=== PATIENT | female | born 1970 | race Caucasian/White ===

== ENCOUNTER 2022-10-24 11:45 | Outpatient (OUT) | payer BC, SELFPAY ==
[2022-10-24 12:25] LABS: Basophils Absolute Auto 0.1 10^3/uL (0.0-0.1); Eosinophils Absolute Auto 0.2 10^3/uL (0.0-0.7); Eosinophils Percent Auto 2.4 % (0.9-7.0); Hematocrit 39.4 % (36.0-48.0); Hemoglobin 13.3 g/dL (12.0-16.0); Immature Granulocytes Abs Auto 0.01 10^3/uL (0.00-0.03); Immature Granulocytes Pct Auto 0.1 % (0.0-0.5); Lymphocytes Absolute Auto 2.3 10^3/uL (1.2-3.8); Lymphocytes Percent Auto 33.6 % (20.5-60.0); Mean Corpuscular HGB Conc 33.8 g/dL (29.9-35.2); Mean Corpuscular Hemoglobin 31.1 pg (26.7-34.0); Mean Corpuscular Volume 92.1 fL (81.0-99.0); Mean Platelet Volume 8.8 fL (9.5-13.5); Monocytes Absolute Auto 0.6 10^3/uL (0.3-0.8); Monocytes Percent Auto 8.8 % (1.7-12.0); Neutrophils Absolute Auto 3.6 10^3/uL (1.4-6.5); Neutrophils Percent Auto 54.1 % (43.0-75.0); Platelet Count 265 10^3/uL (150-450); Red Blood Count 4.28 10^6/uL (4.20-5.40); Red Cell Distribution Width 13.2 % (11.0-15.0); White Blood Count 6.7 10^3/uL (4.0-11.0)
[2022-10-24 13:43] LABS: Alanine Aminotransferase 31 U/L (14-59); Albumin Level 3.9 g/dL (3.4-5.0); Alkaline Phosphatase 64 U/L (46-116); Anion Gap 10.9; Aspartate Amino Transferase 25 U/L (15-37); BUN Creatinine Ratio 12.7; Bilirubin Total 1.1 mg/dL (0.2-1.0); Calcium 9.2 mg/dL (8.5-10.1); Carbon Dioxide 28.3 mmol/L (21.0-32.0); Chloride 104 mmol/L (98-107); Chol HDL Ratio 2.9; Cholesterol 167 mg/dL (<=200); Estimated GFR (African America >60 (>=60); Estimated GFR (Non-African Ame 52 (>=60); Free T3 1.97 pg/mL (2.18-3.98); Globulin 3.9 g/dL; Glucose 99 mg/dL (74-106); HDL Cholesterol 58 mg/dL (40-60); LDL Cholesterol Calculated 95.2 mg/dL; Potassium 4.2 mmol/L (3.5-5.1); Sodium 139 mmol/L (136-145); Thyroid Stimulating Hormone 1.195 uIU/mL (0.358-3.740); Total Protein 7.8 g/dL (6.4-8.2); Triglycerides 69 mg/dL (<=150); VLDL CHOLESTEROL 13.8 mg/dL
[2022-10-24 17:17] LABS: Estimated Average Glucose 111 mg/dL; Glycohemoglobin A1C 5.5 % (4.5-6.2)
== END 2022-10-24 11:46 | disposition home or self-care (01) ==
PROVIDERS: PCP Family Medicine; Visit Provider Family Medicine
DX: Z00.00 Encounter for general adult medical examination without abnormal findings (principal); E55.9 Vitamin D deficiency, unspecified
CPT/HCPCS: 36415; 80053; 80061; 82306; 83036; 83540; 84436; 84443; 84481; 85025

== ENCOUNTER 2024-06-06 15:00 | Outpatient (REF) | payer BC, SELFPAY ==
[2024-06-11 08:09] LABS: Age Gdln ACOG Testing Note (.); HPV Aptima Negative (Negative); IGP, Aptima HPV, rfx 16/18,45 Note (.)
== END 2024-06-06 15:01 | disposition home or self-care (01) ==
LOC: LAB 15:00
PROVIDERS: PCP Family Medicine; Visit Provider Physician Assistant
DX: Z01.419 Encounter for gynecological examination (general) (routine) without abnormal findings (principal)
CPT/HCPCS: 87624; 88175

== ENCOUNTER 2024-08-05 11:30 | Outpatient (OUT) | payer BC, SELFPAY ==
--- NOTE | 2024-08-05 11:35 | MM_ITS ---
Patient Name: MARA DHILLON MR#: [id number] : 1970 Exam Date: 08/05/2024 Ordering Doctor: FELICIA LR . RADIOLOGY REPORT PROCEDURE: MM TOMOSYNTHESIS SCREENING BI COMPARISON: None. INDICATIONS: Screening for malignant neoplasm Calculator Name NCI Breast Cancer Risk Assessment Tool 5 Year Breast Cancer Risk 1.30% Lifetime Breast Cancer Risk 9.30% Personal Breast Cancer No Personal Ovarian Cancer No Treatments None Family Cancers Father with esophageal cancer at age 78. LOCATION: [facility] BREAST COMPOSITION: There are scattered areas of fibroglandular density. FINDINGS: LEFT BREAST: No significant suspicious finding. Punctate benign-appearing calcifications are present. Benign-appearing lymph nodes are noted on chest wall appeared RIGHT BREAST: Focal asymmetry of the medial aspect of the right breast is noted measuring 8 millimeters in greatest dimension 5 cm from the nipple at approximately the 3 o'clock position . Punctate benign-appearing calcifications are present. Benign-appearing lymph nodes are noted along the chest wall. MM/MM tomosynthesis screening BI Impression: Focal asymmetry in the medial aspect of the right breast 5 cm from the nipple at the 3 o'clock position measuring 8 mm is in greatest dimension. Spot compressed views of the right breast with ultrasound is recommended. DIAGNOSTIC CATEGORY 0--INCOMPLETE: NEED ADDITIONAL IMAGING EVALUATION. RECOMMENDATIONS: SPOT COMPRESSED VIEWS OF THE RIGHT BREAST WELL ULTRASOUND IF CLINICALLY INDICATED: RIGHT BREAST --Please schedule a breast ultrasound if appropriate based on clinical data. PLEASE NOTE: A NORMAL MAMMOGRAM DOES NOT EXCLUDE THE POSSIBILITY OF BREAST CANCER. A CLINICALLY SUSPICIOUS PALPABLE LUMP SHOULD BE BIOPSIED. Dictated by: Malvin Bran MD on 08/23/2024 at 08:43 Approved by: Malvin Bran MD on 08/23/2024 at 08:50
== END 2024-08-05 11:31 | disposition home or self-care (01) ==
LOC: MAMMO 11:30
PROVIDERS: PCP Family Medicine; Visit Provider Physician Assistant
DX: Z12.31 Encounter for screening mammogram for malignant neoplasm of breast (principal); Z80.8 Family history of malignant neoplasm of other organs or systems; R92.8 Other abnormal and inconclusive findings on diagnostic imaging of breast
CPT/HCPCS: 77063; 77067

== ENCOUNTER 2024-09-30 08:13 | Outpatient (OUT) | payer BC, SELFPAY ==
--- OUTSIDE RECORDS SUMMARY | 2024-08-27 16:09 | XMS_ITS ---
Author Organization The [facility] in [place] Address [address] [place] [address] Care Team Providers Care Calender Machine Operator Name Role Phone Edu Ward Primary Care Provider REASON FOR VISIT DUPLICATE NOTE Encounters Encounter Location Date Provider Diagnosis [facility] [address] [place] [address] 08/27/2024 Edu Ward Plan Of Treatment No Information Progress Notes * Fany CH LDOB:[birth year] (54 yo F)Acc No.[id number]:08/27/2024 Patient: Zuri BEAULIEUFany :1970 A ge:54 Y S ex:Female Address:[address] [place] [id number] * true * Date: Generated for Kika chirinos/Logan/eTransmitting on: 0 09/30/2024 08:18 AM EDT
--- OUTSIDE RECORDS SUMMARY | 2024-09-03 05:42 | XMS_ITS ---
Author Organization The [facility] in [place] Address [address] [place] [address] Care Team Providers Care Scrum Project Manager Name Role Phone Edu Ward Primary Care Provider REASON FOR VISIT Mamm/ Refills Medications Medication SIG (Take, Route, Frequency, Duration) Notes Start Date End Date Status Omeprazole Magnesium 20 MG 1 tablet 30 m inutes before morning meal Orally Once a day- PRN for 30 days Active Encounters Encounter Location Date Provider Diagnosis [address] [address] 09/03/2024 Edu Ward Well adult Z00.0 0 Assessments Encounter Date Diagnosis (ICD Code) Assessment Notes Treatment Notes Treatment Clinical Notes Section Notes 09/03/2024 Well adult (ICD-10 - Z00.00) Plan Of Treatment Medication Medication Name Sig Start Date Stop Date Notes Omeprazole Magnesium 20 MG 1 tablet 30 m inutes before morning meal Orally Once a day- PRN for 30 days Progress Notes * Fany CH LDOB:[birth year] (54 yo F)Acc No.[id number]:09/03/2024 Patient: Deuce LIVINGSTONwm Pacheco :1970 A ge:54 Y S ex:Female Address:[address] [place] [phone] * Refills Refill Omeprazole Magnesium Tablet Delayed Release, 20 MG, Orally, 30, 1 tablet 30 minutes before morning meal, Once a day- PRN, 30 days, Refills=0 * true * Date: Generated for Kika chirinos/Logan/Ohitting on: 0 09/30/2024 08:19 AM EDT
--- OUTSIDE RECORDS SUMMARY | 2024-09-11 09:15 | XMS_ITS ---
Author Organization The [facility] in [place] Address [address] [place] [address] Care Team Providers Care Cement Production Plant Operator Name Role Phone Edu Ward Primary Care Provider [phone] Allergies No Known Allergies REASON FOR VISIT yearly- due for labs Medications Medication SIG (Take, Route, Frequency, Duration) Notes Start Date End Date Status hydrOXYzine HCl 25 MG 1 tablet as needed Orally qid for 10 days 09/11/2024 Active Omeprazole Magnesium 20 MG 1 tablet 30 m inutes before morning meal Orally Once a day- PRN for 30 days PRN Active Escitalopram Oxalate 10 MG 1 tablet Oral ly Once a day for 90 days Active valACYclovir HCl 1 GM 1 tablet Orally 2 tabs initially then 2 tabs in 12 hours PRN Active Semaglutide (2 MG/DOSE) 8 MG/3ML 1.8 mg Subcutaneous weekly 10/09/2023 A ctive Semaglutide 0.3 mg/0.25mL 0.3 mg/0.25 mL 0.25 mL Subcutaneous Once weekly for 30 day(s) 06/11/2024 Active Social History Tobacco Use: Social History Observation Description Date Details (start date - stop date) Never Smoker NA - NA Tobacco Control (Standard) Question Answer Notes Tobacco use: Nonsmoker AUDIT-C (Standard) Question Answer Notes Did you have a drink containing alcohol in the p ast year? No Points 0 Interpretation Negative Vital Signs Weight 163.0 lbs 09/11/2024 Height 67 in 09/11/2024 Blood pressure systolic 120 mm Hg 09/12/19 25 Blood pressure diastolic 72 mm Hg 025 BMI 25.53 kg/m2 09/11/2024 Encounters Encounter Location Date Provider Diagnosis [facility] [address] [facility] [place] [address] 09/11/2024 Edu Ward Well adult Z00.0 0 Assessments Encounter Date Diagnosis (ICD Code) Assessment Notes Treatment Notes Treatment Clinical Notes Section Notes 09/11/2024 Well adult (ICD-10 - Z00.00) Plan Of Treatment Medication Medication Name Sig Start Date Stop Date Notes hydrOXYzine HCl 25 MG 1 tablet as needed Orally qid for 10 days 09/11/2024 Pending Test Test Name Order Date HEMOGLOBIN A1C (GLYCO) 09/11/2024 IRON, TOTAL 09/11/2024 LIPID PANEL (CHOL/TRIG/HDL/LDL) 09/12/19 25 THYROID PANEL (T4/TSH/FREE T3) CMP (COMP MET KINGSLEY) w/eGFR CKD-EPI 2024 CBC WITH DIFF 09/11/2024 Progress Notes * DIMADeuce WHEELERee LDOB:[birth year] (54 yo F)Acc No.[id number]:09/11/2024 Progress Note Patient: Fany LIVINGSTON Provider: Yas Ward ([facility])MD :1970 A ge:54 Y S ex:Female Date:09/11/2024 Address:[address] [place], [place] [id number] Check In:01:13 PM ESTCheck O ut:01:55 PM EST Subjective: * Chief Complaints: * Y early- due for labs * HPI: G eneral: GERd Meds helping more anxiety - mom not best health discussed hydroxyzine cold somres - med intermittant diwell with semaglutide - lost 50 lb - gained some bck so went back on it. * ROS: E ENT: hearing changes d enies. v isual changes d enies.?non-healing mouth sores d enies. s wollen glands or neck lumps d enies. h oarseness d enies. s ore throat d enies. d ifficulty swallowing d enies. n ose bleeds d enies. n dayami congestion d enies. e ar ache d enies. e ar discharge?denies. r inging in ears d enies. l ight sensitivity d enies. e ye pain d enies. b lurring d enies. e ye irritation d enies. d ouble vision d enies.?vision loss d enies. G eneral/Constitutional: Sweats: D enies. F atigue d enies. S leep problems d enies. A norexia d enies. M alaise d enies. W eight loss d enies.?Fatigue or Weakness d enies. F ever or Chills d enies. C ardiovascular: Shortness of Breath w/lying flat d enies. L ightheadedness/dizziness d enies. C hest tightness/ heavy pressure d enies. S welling of legs, ankles, or feet d enies. W aking up with shortness of breath d enies. C hest pain denies. P alpitations d enies. W eight gain d enies. R espiratory: Chronic or frequent cough d enies. C oughing up blood?denies. D ifficulty breathing d enies. P roductive cough d enies. S noring?denies. S hortness of breath that awakens from sleep (PND) d enies. C hest pain d enies. S putum production d enies. W heezing d enies. M usculoskeletal: Joint pain d enies. J oint Fluid d enies. B ack pain d enies. K nee pain d enies. N melvin pain d enies. J oint Stiffness d enies. M uscle cramps d enies. W eakness of muscles d enies. A rthritis d enies. M uscle aches d enies. P ain in shoulder(s) d enies. S wollen joints d enies. 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 M other: alive. B rother(s): alive. S ister(s): alive. D renan(s): alive, anxiety. 1 brother(s) , 3 sister(s) - healthy. 2 daughter(s) - healthy. . * Social History: T obacco Use: T obacco Control (Standard) T obacco use: N onsmoker D rug/Alcohol: A PAULINA-C (Standard) D id you have a drink containing alcohol in the past year? N o P oints 0 I nterpretation N egative * Medications: T akingEscitalopram Oxalate 10 MG Tablet 1 tablet Orally Once a day Omeprazole Magnesium 20 MG Tablet Delayed Release 1 tablet 30 minutes before morning meal Orally Once a day- PRN , Notes to Pharmacist: PRNSemaglutide (2 MG/DOSE) 8 MG/3ML Solution Pen-injector 1.8 mg Subcutaneous weekly Semaglutide 0.3 mg/0.25mL 0.3 mg/0.25 mL Solution Auto-injector 0.25 mL Subcutaneous Once weekly valACYclovir HCl 1 GM Tablet 1 tablet Orally 2 tabs initially then 2 tabs in 12 hours , Notes to Pharmacist: PRNMedication List reviewed and reconciled with the patientTaking Escitalopram Oxalate 10 MG Tablet 1 tablet Orally Once a day Taking Omeprazole Magnesium 20 MG Tablet Delayed Release 1 tablet 30 minutes before morning meal Orally Once a day- PRN , Notes to Pharmacist: PRNTaking Semaglutide (2 MG/DOSE) 8 MG/3ML Solution Pen-injector 1.8 mg Subcutaneous weekly Taking Semaglutide 0.3 mg/0.25mL 0.3 mg/0.25 mL Solution Auto-injector 0.25 mL Subcutaneous Once weekly Taking valACYclovir HCl 1 GM Tablet 1 tablet Orally 2 tabs initially then 2 tabs in 12 hours , Notes to Pharmacist: PRNMedication List reviewed and reconciled with the patient * Allergies: N .K.D.A.no[Allergies Verified] Objective: * Vitals: W t:163.0lbs, Ht: 67 in, BP:120/72mm Hg, BMI:25.53Index, Wt-k.94 kg. * Examination: P hysical Exam: GENERAL: w ell developed, well nourished, in no acute distress. HEAD: n ormocephalic/atraumatic. EYES: p upils equal, round and reactive to light, conjunctivae and sclerae normal. EARS: n o deformity or lesion of external ear, canals and TM appear normal bilaterally, TM's intact, not inflamed with normal light reflex, hearing grossly normal to conversational speech. NOSE: n o deformity, discharge, inflammation, or lesions.? MOUTH: m ucous membranes moist, normal oropharynx and posterior pharynx without lesions or exudates, tongue normal, dentition normal. NECK: n melvin supple, no masses or palpable cervical nodes, trachea midline, thyroid without nodules, masses, tenderness, or enlargement. CHEST: n o chest wall deformity, no chest wall tenderness.? LUNGS: n ormal respiratory effort and clear to auscultation, no wheezes, rales, or rhonchi, good air exchange. CARDIO: r egular rate and rhythm, normal S1 and S2, nor murmur, rub, or gallop. PULSES: n ormal capillary refill. ABDOMEN: s oft, non-distended, non-tender, no masses. MUSCULOSKELETAL: n o deformity or scoliosis noted, normal range of motion, joints normal, no erythema, edema, effusion, or ecchymosis. EXTREMITY: n o clubbing, cyanosis, edema, or deformity with normal ROM in both upper and lower bilateral extremities. NEUROLOGIC: g rossly normal. SKIN: n o rashes, ulcerations, or suspicious lesions. LYMPH NODES: n o cervical adenopathy, nodes normal. MENTAL STATUS: a lert and oriented x3, normal mood and affect. Assessment: * Assessment: 1. W ell adult - Z00.00 (Primary) Plan: * Treatment: * Procedure Codes: * Preventive Medicine: Screenings/Counseling: B DE ACTION PLAN Above Normal BMI Follow-up D ietary management education, guidance, and counseling * * Sign off status: Completed Visit Status: C HK (Check Out) true * Provider: Yas Ward (TTC)MD Date: 0 09/11/2024 Generated for Printi ng/Faxing/eTransmitting on: 0 09/30/2024 08:19 AM EDT History and Physical Notes * HPI (History of Present Illness) Category Sub-Category Detail Notes Category Not es General GERd Meds helping more anxiety - mom not best health discussed hydroxyzine cold somres - med intermittant diwell with semaglutide - lost 50 lb - gained some bck so went back on it Examination Category Sub-Category Detail Notes Category Not es Physical Exam GENERAL: well developed, well nourished, in no acute distress HEAD: normocephalic/atraum atic EYES: pupils equal, round and reactive to light, conjunctivae and sclerae normal EARS: no deformity or lesi on of external ear, canals and TM appear normal bilaterally, TM's intact, not inflamed with normal light reflex, hearing grossly normal to conversational speech NOSE: no deformity, discha rge, inflammation, or lesions MOUTH: mucous membranes richard st, normal oropharynx and posterior pharynx without lesions or exudates, tongue normal, dentition normal NECK: neck supple, no mass es or palpable cervical nodes, trachea midline, thyroid without nodules, masses, tenderness, or enlargement CHEST: no chest wall deform ity, no chest wall tenderness LUNGS: normal respiratory e ffort and clear to auscultation, no wheezes, rales, or rhonchi, good air exchange CARDIO: regular rate and rhy thm, normal S1 and S2, nor murmur, rub, or gallop PULSES: normal capillary ref ill ABDOMEN: soft, non-distended, non-tender, no masses RECTAL: MUSCULOSKELETAL: no deformity or scol iosis noted, normal range of motion, joints normal, no erythema, edema, effusion, or ecchymosis EXTREMITY: no clubbing, cyanosi s, edema, or deformity with normal ROM in both upper and lower bilateral extremities NEUROLOGIC: grossly normal SKIN: no rashes, ulceratio ns, or suspicious lesions LYMPH NODES: no cervical adenopat hy, nodes normal MENTAL STATUS: alert and oriented x 3, normal mood and affect
--- OUTSIDE RECORDS SUMMARY | 2024-09-30 08:18 | XMS_ITS | Encounter Summary ---
Author Organization [facility] Address [address] [place] [address] Care Team Providers Care Corporate Tax Manager Name Role Phone Vimal Dominguez DO Primary Care Provider Reason for Visit * Reason Comments Medication Refill Encounter Details Date Type Department Care Team (Late st Contact Info) Description 12/17/2019 Refill [facility] [address] [place] [address] Vimal Dominguez DO [address] [place] [address] Medication Refill Social History Tobacco Use Types Packs/Day Years Used Date Smoking Tobacco: Never Smokeless Tobacco: Never Alcohol Use Standard Drinks/Week Comments Yes 0 (1 standard drink = 0.6 oz pur e alcohol) socially PHQ-2 Answer Date Recorded PHQ-2 Score 0 07/11/2018 Comments No Sex and Gender Information Value Date Recorded Sex Assigned at Not on file Legal Sex Female 1:48 AM EST Gender Identity Not on file Sexual Orientation Not on file Occupation Industry Job Start Date Job End Date Not on file Not on file Not on file Not on file documented as of this encounter Plan of Treatment Not on file documented as of this encounter Visit Diagnoses Not on filedocumented in this encounter Care Teams Corporate Tax Manager Relationship Specialty Start Date End Date Vimal Dominguez DO [address] [place], [place] [phone] PCP - General 08/10/16 documented as of this encounter
--- OUTSIDE RECORDS SUMMARY | 2024-09-30 08:18 | XMS_ITS | Clinical Summary ---
Author Organization [facility] Address [address] [place] [address] Care Team Providers Care Escort Car Driver Name Role Phone Unavailable Primary Care Provider Unavailabl e Allergies No known active allergies Medications escitalopram (Lexapro) 10 MG tablet Take 10 mg by mouth Daily 12/09/2004 Active omeprazole (PriLOSEC) [address] capsule Take 20 mg by mouth if needed Active valACYclovir (Valtrex) 1 g tablet Take 1,000 mg by mouth if needed Active Encounters Date Type Department Care Team Description 09/03/2024 Telephone [facility] [address] [place] [address] Mimi Lozano MA Error (VOID this visit) 08/27/2024 Results Follow-Up [facility] [address] [place] [address] Sarah Baker LPN 08/23/2024 Clinisync Result Encounter [facility] Unsolicited Barb Lr PA from Last 3 Months Social History Tobacco Use Types Packs/Day Years Used Date Smoking Tobacco: Never Assessed Comments Unknown Sex and Gender Information Value Date Recorded Sex Assigned at Not on file Legal Sex Female 9:35 AM EST Gender Identity Female 06/05/2024 2:23 PM EST Sexual Orientation Not on file Last Filed Vital Signs Vital Sign Reading Time Taken Comments Blood Pressure 112/70 06/06/2024 10:22 AM EST Pulse - - Temperature - - Respiratory Rate - - Oxygen Saturation - - Inhaled Oxygen Concentration - - Weight 72 kg (158 lb 12.8 oz) 06/06/2024 10:22 A M EST Height - - Body Mass Index - - Plan of Treatment Upcoming Encounters Date Type Department Care Team (Late st Contact Info) Description 06/10/2025 11:00 AM EST Office Visit [facility] [address] [place] [phone] Barb Lr PA [address] [place] [address] Health Maintenance Due Date Last Done Comments CT Colonography 1970 Colonoscopy 1970 Colorectal Cancer Screening 1970 FIT-DNA 1970 FIT 1970 FOBT 1970 Sigmoidoscopy 1970 Pap Smear 1991 Influenza Vaccine (Season Ended) 2024 02/01/20, 01/28/2021 Mammogram 08/23/2025 08/23/2024, 03/07/2022 Cervical Cancer Screening 12/08/2026 HPV/Cotest 12/08/2026 12/08/2021 Procedures Procedure Name Priority Date/Time Associated Diagnosis Comments MM TOMOSYNTHESIS SCREENING BI 08/23/2024 8:50 AM EDT from Last 3 Months Results * MM TOMOSYNTHESIS SCREENING BI (08/23/2024 8:50 AM EDT) Anatomical Region Laterality Modality Other 08/23/2024 8:50 AM EDT Narrative 08/23/2024 8:51 AM EDT The [address] [address] Mammography Report Signed Patient: FANY CH MR#: [id number] : 1970 Acct:[id number] Age/Sex: 54 / F ADM Date: 08/05/24 Loc: MAMMO Attending Dr: Barb Lr Ordering Physician: Barb Lr Results: Date of Service: 08/05/24 Follow Up: Procedure(s): MM tomosynthesis screening BI Accession Number(s): [id number] cc: Barb Lr; Jey Ward M.D. Patient Name: FANY CH MR#: [id number] : 1970 Exam Date: 08/05/2024 Ordering Doctor: FELICIA LR . RADIOLOGY REPORT PROCEDURE: MM TOMOSYNTHESIS SCREENING BI COMPARISON: None. INDICATIONS: Screening for malignant neoplasm Calculator Name NCI Breast Cancer Risk Assessment Tool 5 Year Breast Cancer Risk 1.30% Lifetime Breast Cancer Risk 9.30% Personal Breast Cancer No Personal Ovarian Cancer No Treatments None Family Cancers Father with esophageal cancer at age 78. LOCATION: [facility] BREAST COMPOSITION: There are scattered areas of fibroglandular density. FINDINGS: LEFT BREAST: No significant suspicious finding. Punctate benign-appearing calcifications are present. Benign-appearing lymph nodes are noted on chest wall appeared RIGHT BREAST: Focal asymmetry of the medial aspect of the right breast is noted measuring 8 millimeters in greatest dimension 5 cm from the nipple at approximately the 3 o'clock position . Punctate benign-appearing calcifications are present. Benign-appearing lymph nodes are noted along the chest wall. MM/MM tomosynthesis screening BI Impression: Focal asymmetry in the medial aspect of the right breast 5 cm from the nipple at the 3 o'clock position measuring 8 mm is in greatest dimension. Spot compressed views of the right breast with ultrasound is recommended. DIAGNOSTIC CATEGORY 0--INCOMPLETE: NEED ADDITIONAL IMAGING EVALUATION. RECOMMENDATIONS: SPOT COMPRESSED VIEWS OF THE RIGHT BREAST WELL ULTRASOUND IF CLINICALLY INDICATED: RIGHT BREAST --Please schedule a breast ultrasound if appropriate based on clinical data. PLEASE NOTE: A NORMAL MAMMOGRAM DOES NOT EXCLUDE THE POSSIBILITY OF BREAST CANCER. A CLINICALLY SUSPICIOUS PALPABLE LUMP SHOULD BE BIOPSIED. Dictated by: Malvin Bran MD on 08/23/2024 at 08:43 Approved by: Malvin Bran MD on 08/23/2024 at 08:50 Dictated By: Malvin Bran M.D. Signed By: 08/23/24 0851 DD/ 0850 TD/TT: Shorer: Procedure Note Radiology, Radiologist, - 08/23/2024 [place] [address] Mammography Report Signed Patient: FANY CH LMR#: [id number] : 1970Acct:[id number] Age/Sex: 54 / FADM Date: 08/05/24 Loc: MAMMO Attending Dr: Barb Lr Ordering Physician: Barb Palenciaults: Date of Service: 08/05/24Follow Up: Procedure(s): MM tomosynthesis screening BI Accession Number(s): [id number] cc: Barb Lr; Jey Ward M.D. Patient Name: FANY CH MR#: [id number] : 1970 Exam Date: 08/05/2024 Ordering Doctor: FELICIA LR . RADIOLOGY REPORT PROCEDURE: MM TOMOSYNTHESIS SCREENING BI COMPARISON: None. INDICATIONS: Screening for malignant neoplasm Calculator Name NCI Breast Cancer Risk Assessment Tool 5 Year Breast Cancer Risk 1.30% Lifetime Breast Cancer Risk 9.30% Personal Breast Cancer No Personal Ovarian Cancer No Treatments None Family Cancers Father with esophageal cancer at age 78. LOCATION: [facility] BREAST COMPOSITION: There are scattered areas of fibroglandulardensity. FINDINGS: LEFT BREAST: No significant suspicious finding. Punctatebenign-appearing calcifications are present. Benign-appearing lymph nodes are noted onchest wall appeared RIGHT BREAST: Focal asymmetry of the medial aspect of the right breast is noted measuring 8 millimeters in greatest dimension 5 cm from the nippleat approximately the 3 o'clock position . Punctate benign-appearing calcifications are present. Benign-appearing lymph nodes are noted alongthe chest wall. MM/MM tomosynthesis screening BI Impression: Focal asymmetry in the medial aspect of the right breast 5 cm from the nipple at the 3 o'clock position measuring 8 mm is in greatest dimension. Spot compressed views of the right breast with ultrasound is recommended. DIAGNOSTIC CATEGORY 0--INCOMPLETE: NEED ADDITIONAL IMAGING EVALUATION. RECOMMENDATIONS: SPOT COMPRESSED VIEWS OF THE RIGHT BREAST WELL ULTRASOUND IFCLINICALLY INDICATED: RIGHT BREAST --Please schedule a breast ultrasound ifappropriate based on clinical data. PLEASE NOTE: A NORMAL MAMMOGRAM DOES NOT EXCLUDE THE POSSIBILITY OFBREAST CANCER. A CLINICALLY SUSPICIOUS PALPABLE LUMP SHOULD BE BIOPSIED. Dictated by: Malvin Bran MD on 08/23/2024 at 08:43 Approved by: Malvin Bran MD on 08/23/2024 at 08:50 Dictated By: Malvin Bran M.D. Signed By:08/23/2451 DD/ TD/TT: Shorer: Barb [facility] Final Result from Last 3 Months Insurance
--- OUTSIDE RECORDS SUMMARY | 2024-09-30 08:18 | XMS_ITS | Encounter Summary ---
Author Organization [facility] Address [address] [place] [address] Care Team Providers Care First Coat Operator Name Role Phone Vimal Dominguez DO Primary Care Provider Reason for Visit * Reason Comments Medication Refill Encounter Details Date Type Department Care Team (Late st Contact Info) Description 10/31/2020 Refill [facility] [address] [place] [address] Vimal Dominguez DO [address] [place], [place] [phone] Medication Refill Social History Tobacco Use Types [...] documented as of this encounter Visit Diagnoses Diagnosis Dysthymia Dysthymic disorder documented in this encounter Care Teams First Coat Operator Relationship Specialty Start Date End Date Vimal Dominguez DO [address] [place], [place] [phone] PCP - General 08/10/16 documented as of this encounter
--- OUTSIDE RECORDS SUMMARY | 2024-09-30 08:18 | XMS_ITS | Encounter Summary ---
Author Organization [facility] Address [address] [facility] [place] [address] Care Team Providers Care Driver Helper Name Role Phone Unavailable Primary Care Provider Unavailabl e Encounter Details Date Type Department Care Team (Late st Contact Info) Description 08/27/2024 Results Follow-Up [facility] [address] [place] [address] Sarah Baker LPN [address] [id number] Social History Tobacco Use Types Packs/Day Years Used Date Smoking Tobacco: Never Assessed Comments Unknown Sex and Gender Information Value Date Recorded Sex Assigned at Not on file Legal Sex Female 9:35 AM EST Gender Identity Female 06/05/2024 2:23 PM EST Sexual Orientation Not on file documented as of this encounter Miscellaneous Notes * Result Encounter Note - Sarah Baker LPN - 08/27/2024 1:[address] Ward's office already contacted pt and ordered testing. documented in this encounter Plan of Treatment Upcoming Encounters Date Type Department Care Team (Late st Contact Info) Description 06/10/2025 11:00 AM EST Office Visit [facility] [address] [place] [address] Barb Bay PA [address] [place] [address] documented as of this encounter Visit Diagnoses Not on filedocumented in this encounter
--- OUTSIDE RECORDS SUMMARY | 2024-09-30 08:18 | XMS_ITS | Encounter Summary ---
Author [facility] Address [address] [place] [address] Care Team Providers Care Inspector Crystal Name Role Phone Vimal Dominguez DO Primary Care Provider Reason for Visit * Reason Comments Medication Refill Encounter Details Date Type Department Care Team (Late st Contact Info) Description [facility] [address] [place] [address] Vimal Dominguez DO [address] [place] [address] Medication Refill Social History Tobacco [...] as of this encounter Visit Diagnoses Diagnosis Gastroesophageal reflux disease, unspecified whether esophagitis present documented in this encounter Care Teams Inspector Crystal Relationship Specialty Start Date End Date Vimal Dominguez DO [address] [place] [place] [address] PCP - General 08/10/16 documented as of this encounter
--- OUTSIDE RECORDS SUMMARY | 2024-09-30 08:19 | XMS_ITS | Patient Health Record ---
Author Organization [facility] Address [address] [place] [address] Care Team Providers Care Antique Jewelry Repairer Name Role Phone Sylvia Edu Primary Care Provider FIDELIA WARD Unavailable [phone] Allergies No Known Allergies Results Component Value Reference Range Notes IGP,Aptima HPV,Age Gdln Reviewed date:06/11/2024 07:23:34 PM Interpretation: Performing Lab: Notes/Report: BRUSH-SPATULA CERVIX ENDOCERVIX [facility] , Age Gdln ACOG Testing Note . TESTS RESULT FLAG UNITS REF RANGE LAB Clinician Provided Cytology Information Source.............Cervi x;Endocervix No. of containers..01 ThinPrep Vial Age Algo ACOG Jocy... 30-65 01 FLAG LEGEND: L-Low Normal,H-High Normal,LL-Alert Low,HH-Alert High <-Panic Low,>-Panic High,A-Abnormal,AA-Criti anthony Abnormal Performed at: 01 =[facility] [address] [place] [address] Darline Zapata MD, IGP, Aptima HPV, rfx 16/18,45 Note . TESTS RESULT FLAG UNITS REF RANGE LAB DIAGNOSIS: 02 NEGATIVE FOR INTRAEPITHELIAL LESION OR MALIGNANCY. Specimen adequacy: 02 Satisfactory for evaluation. Endocervical and/or squamous metaplastic cells (endocervical component) are present. Performed by: Davy Baker, Shredder Picker (ASC) . 02 Note: Note 02 The Pap smear is a screening test designed to aid in the detection of premalignant and malignant conditions of the uterine cervix. It is not a diagnostic procedure and should not be used as the sole means of detecting cervical cancer. Both false-positive and false-negative reports do occur. Test Methodology: Note 02 This liquid based ThinPrep(R) pap test was screened with the use of an image guided system. HPV Genotype Reflex Note 02 Criteria not met, HPV Genotype not performed. FLAG LEGEND: L-Low Normal,H-High Normal,LL-Alert Low,HH-Alert High <-Panic Low,>-Panic High,A-Abnormal,AA-Criti anthony Abnormal Performed at: [address] [address] Darline Zapata MD, HPV Aptima Negative Negative This nucleic acid amplification test detects fourteen high- risk HPV types (16,18,31,33,35,39,45,51 ,52,56,58,59,66,68) without differentiation. Performed at: = - [facility] [address] [id number] [place] Supervisor: Darline Zapata MD, Phone: [phone] Performed at: - [facility] [id number] [place] Supervisor: Darline Zapata MD, Phone: [phone] Performing Lab: see note - [facility] LB MM tomosynthesis screening B I Reviewed date:08/27/2024 08:10:47 PM Interpretation: Performing Lab: Notes/Report: Source Facility: [place] [address] Mammography Report Signed Patient: FANY CH MR#: [id number] : 1970 Acct:[id number] Age/Sex: 54 / F ADM Date: 08/05/24 Loc: MAMMO Attending Dr: Barb Lr Ordering Physician: Barb Lr Results: Date of Service: 08/05/24 Follow Up: Procedure(s): MM tomosynthesis screening BI Accession Number(s): [id number] cc: Barb Lr; Fidelia Ward M.D. Patient Name: FANY CH MR#: [id number] : 1970 Exam Date: 08/05/2024 Ordering Doctor: FELICIA LR . This report includes an Addendum and supersedes previous reports for this exam. RADIOLOGY REPORT PROCEDURE: MM TOMOSYNTHESIS SCREENING BI COMPARISON: None. INDICATIONS: Screening for malignant neoplasm Calculator Name NCI Breast Cancer Risk Assessment Tool 5 Year Breast Cancer Risk 1.30% Lifetime Breast Cancer Risk 9.30% Personal Breast Cancer No Personal Ovarian Cancer No Treatments None Family Cancers Father with esophageal cancer at age 78. LOCATION: [facility] BREAST COMPOSITION: There are scattered areas of [...] Malvin Bran MD on 08/23/2024 at 08:50 ADDENDUM: COMPARISON: MM TOMOSYNTHESIS SCREENING BI, 03/02/2022. FINDINGS: RIGHT BREAST: No significant suspicious finding. The focal asymmetry noted on the current images was present on the 2019 study and is felt to be benign paired benign-appearing lymph nodes are noted along the chest wall. Benign-appearing calcifications are present. LEFT BREAST: No significant suspicious finding. Benign-appearing calcifications present. Benign-appearing lymph are chest wall DIAGNOSTIC CATEGORY 2--BENIGN FINDING: RECOMMENDATIONS: ROUTINE MAMMOGRAM AND CLINICAL EVALUATION IN 12 MONTHS. Dictated by: Malvin Bran MD on 08/27/2024 at 13:05 Approved by: Malvin Bran MD on 08/27/2024 at 13:09 Dictated By: Malvin Bran M.D. Signed By: 08/27/24 1310 DD/ 1309 TD/TT: Chicken Vaccinator: [place] [address] Mammography Report Signed Patient: LAURI CH MR#: [id number] : 1970 Acct:[id number] Age/Sex: 54 / F ADM Date: 08/05/24 Loc: MAMMO Attending Dr: Barb Lr Ordering Physician: Barb Lr Results: Date of Service: 08/05/24 Follow Up: Procedure(s): MM tomosynthesis screening BI Accession Number(s): [id number] cc: Barb Lr; Fidelia Ward M.D. Patient Name: FANY CH MR#: [id number] : 1970 Exam Date: 08/05/2024 Ordering Doctor: FELICIA LR . This report includes an Addendum and supersedes previous reports for this exam. RADIOLOGY REPORT PROCEDURE: MM TOMOSYNTHESIS SCREENING BI COMPARISON: None. INDICATIONS: Screeni ng for malignant neoplasm Calculator Name NCI Breast Cancer Risk Assessment Tool 5 Year Breast Cancer Risk 1.30% Lifetime Breast Canc er Risk 9.30% Personal Breast Canc er No Personal Ovarian Cancer No Treatments None Family Cancers Fathe r with esophageal cancer at age 78. LOCATION: [facility] BREAST COMPOSITION: There are scattered areas of [...] breast 5 cm from the nipple at t he 3 o'clock position measuring 8 mm is in greatest dimension. Spot compressed views of the right breast with ultrasound is recommended. DIAGNOSTIC CATEGORY 0--INCOMPLETE: NEED ADDITIONAL IMAGING EVALUATION. RECOMMENDATIONS: SPOT COMPRESSED VIEW S OF THE RIGHT BREAST WELL ULTRASOUND IF CLINICALLY INDICATED: RIGHT BREAST --Please schedule a breast ultrasound if appropriate based on clinical data. PLEASE NOTE: A TIMBO L MAMMOGRAM DOES NOT EXCLUDE THE POSSIBILITY OF BREAST CANCER. A CLINICALLY SUSPICIOUS PALPABLE LUMP SHOULD BE BIOPSIED. Dictated by: Malvin Bran MD on 08/23/2024 at 08:43 Approved by: Malvin Bran MD on 08/23/2024 at 08:50 ADDENDUM: COMPARISON: MM TOMOSYNTHESIS SCREENING BI, 03/02/2022. FINDINGS: RIGHT BREAST: No significant suspicious finding. The focal asymmetry noted on the current image s was present on the 2019 through study and is felt to be benign paired benign-appearing lymph nodes are noted along the chest wall. Benign-appearing calcifications are present. LEFT BREAST: No significant suspicious finding. Benign-appearing calcifications present. Benign-appearing lymph are chest wall DIAGNOSTIC CATEGORY 2--BENIGN FINDING: RECOMMENDATIONS: ROUTINE MAMMOGRAM AN D CLINICAL EVALUATION IN 12 MONTHS. Dictated by: Malvin Bran MD on 08/27/2024 at 13:05 Approved by: Malvin Bran MD on 08/27/2024 at 13:09 Dictated By: Malvin Bran M.D. Signed By: 08/27/24 1310 DD/ 1309 TD/TT: Chicken Vaccinator: Reason For Referral No Information Medications Medication SIG (Take, Route, Frequency, Duration) [...] Once weekly for 30 day(s) 06/11/2024 Active Immunizations Vaccine Route Administration Date Status Comme nts Flu, Flucelvax (56165) 2 yrs +, single-dose syringe (1382-5910) Unknown 01/31/2022 Administered SARS-COV-2 (COVID 19 Moderna - Booster 0.25mL) Unknown 04/17/2020 Administered SARS-COV-2 (COVID 19 Moderna - Booster 0.25mL) Unknown 05/15/2020 Administered SARS-COV-2 (COVID 19 Moderna - Booster 0.25mL) Unknown 03/10/2021 Administered Social History Tobacco Use: Social History Observation Description Date Details (start date - stop date) Never Smoker NA - NA Tobacco Control (Standard) Question Answer Notes Tobacco use: Nonsmoker AUDIT-C (Standard) Question Answer Notes Did you have a drink containing alcohol in the p ast year? No Points 0 Interpretation Negative Problems Problem Type SNOMED Code ICD Code Onset Dates Problem Status W/U Status Risk Notes Problem Weight gain (277819141) Weight gain (R63.5) Active confirmed Problem Well adult (860293228) Well adult (Z00.00) Active confirmed Vital Signs Blood pressure diastolic 72 mm Hg 09/11/2024 Height 67 in 09/11/2024 Blood pressure systolic 120 mm Hg 09/11/2024 Weight 163.0 lbs 09/11/2024 BMI 25.53 kg/m2 09/11/2024 Encounters Encounter Location Date Provider Diagnosis [facility] [address] [place] [address] 08/25/2024 Edu aWrd Abnormal mammogram R92.8 [facility] [address] [place] [address] 08/27/2024 Edu Ward [facility] [address] [place] [facility] [address] 09/03/2024 Edu Ward Well adult Z00.00 [facility] [address] [place] [address] 10/09/2023 FIDELIA WARD [facility] [address] [place] [facility] [place] [place] [address] 10/31/2023 Edu Ward [facility] [address] [place] [facility] [place] [place] [address] 12/25/2023 Edu Ward [facility] [address] [place] [address] 06/11/2024 Edu Ward [facility] [address] [place] [address] 07/09/2024 Edu Ward [facility] [address] [place] [address] 08/05/2024 Edu Ward [facility] [address] [place] [address] 09/11/2024 Edu Ward Well adult Z00.00 Assessments Encounter Date Diagnosis (ICD Code) Assessment Notes Treatment Notes Treatment Clinical Notes Section Notes 09/11/2024 Well adult (ICD-10 - Z00.00) 08/25/2024 Abnormal mammogram (ICD-10 - R92.8) 09/03/2024 Well adult (ICD-10 - Z00.00) Plan Of Treatment Pending Test Test Name Order Date CMP (COMPLETE METABOLIC PANEL) 3 CMP (COMPLETE METABOLIC PANEL) 4 HEMOGLOBIN A1C (GLYCO) 09/11/2024 HEMOGLOBIN A1C (GLYCO) 10/24/2022 HEMOGLOBIN A1C (GLYCO) 07/28/2023 IRON, TOTAL 10/24/2022 IRON, TOTAL 09/11/2024 LIPID PANEL (CHOL/TRIG/HDL/LDL) 10/25/19 23 LIPID PANEL (CHOL/TRIG/HDL/LDL) 09/12/19 25 CBC WITH DIFF 10/24/2022 CBC WITH DIFF 07/28/2023 VITAMIN D, 25 LEVEL (TOTAL) 10/24/2022 VITAMIN D, 25 LEVEL (TOTAL) 07/28/2023 Cologuard 07/28/2023 Cologuard 10/24/2022 Insulin Level 07/28/2023 THYROID PANEL (T4/TSH/FREE T3) 4 THYROID PANEL (T4/TSH/FREE T3) 5 THYROID PANEL (T4/TSH/FREE T3) 3 BI MAMMOGRAM DIAGNOSTIC TOMOSYNTHESIS BI LATERAL 08/25/2024 BI US BREAST COMPLETE RIGHT 08/25/2024 CMP (COMP MET KINGSLEY) w/eGFR CKD-EPI 2024 CBC WITH DIFF 09/11/2024 Insurance Providers Payer Name Payer Address Payer Phone Subscriber Number Group Number Insured Name Patient Relationship to Insured Coverage Start Date Coverage End Date ANTHEM ACCESS PPO PLUS LOCAL PLAN [address] [place] [address] [id number] Guy Ch Spouse - patient is the spouse of the insured 3 Medical (General) History Medical History History ICD Code GERD (gastroesophageal reflux disease) K 21.9 Generalized anxiety disorder F41.1 Surgical History Surgery Date(Month/Year) Umbilical hernia repair 2005 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
--- OUTSIDE RECORDS SUMMARY | 2024-09-30 08:20 | XMS_ITS | Clinical Summary ---
Author Organization [facility] Address [address] [place] [address] Care Team Providers Care Children'S Counselor Name Role Phone Vimal Dominguez DO Primary Care Provider Allergies No known active allergies Medications valACYclovir (VALTREX) 1 g tablet TAKE TWO TABLETS BY MOUTH TWO TIMES A DAY. TAKE TWO INITIALLY AND THEN TWO MORE TWELVE HOURS LATER 28 tablet 1 2 Active omeprazole (PRILOSEC) 20 MG delayed release capsuleIndicatio ns:Gastroesophag eal reflux disease, unspecified whether esophagitis present One daily 30 capsule 5 2 Active escitalopram (LEXAPRO) 10 MG tabletIndication s:Dysthymia Take 1 tablet by mouth once daily 120 tablet 3 Active Active Problems Problem Noted Date Diagnosed Date GERD (gastroesophageal reflux disease) 6 Depression 07/30/2015 Immunizations Immunization Administration Dates Next Due COVID-19, MODERNA BLUE bill r, Primary or Immunocompromised, (age 12y+), IM, 100 mcg/0.5mL 03/10/2021,05/15/2020,04/17/2020 Influenza, FLUCELVAX, (age 6 mo+), MDCK, Quadv PF, 0.5mL 01/31/2022,01/28/2021 Family History Medical History Relation Name Comments Cancer Father throat - smoker Depression Sister 3 Relation Name Status Comments Brother Alive Father Mother Alive Sister 1 Alive Sister 2 Alive Sister 3 Alive Social History Tobacco Use Types Packs/Day Years Used Date Smoking Tobacco: Never Smokeless Tobacco: Never Tobacco Cessation:Counseling Given: Not Answered Alcohol Use Standard Drinks/Week Comments Yes 0 (1 standard drink = 0.6 oz pur e alcohol) socially Overall Financial Resource Strain (CARDIA) Answe r Date Recorded How hard is it for you to pa y for the very basics like food, housing, medical care, and heating? Not hard at all 01/31/2022 PHQ-2 Answer Date Recorded PHQ-9 Total Score 0 01/31/2022 Hunger Vital Sign Answer Date Recorded Within the past 12 months, y ou worried that your food would run out before you got the money to buy more. Never true 02/01/20 22 Within the past 12 months, t he food you bought just didn't last and you didn't have money to get more. Never true 01/31/2022 Comments No Sex and Gender Information Value Date Recorded Sex Assigned at Not on file Legal Sex Female 1:48 AM EST Gender Identity Not on file Sexual Orientation Not on file Occupation Industry Job Start Date Job End Date Not on file Not on file Not on file Not on file Last Filed Vital Signs Vital Sign Reading Time Taken Comments Blood Pressure 110/80 01/31/2022 1:29 PM EDT Pulse 75 01/31/2022 1:29 PM EDT Temperature 36.2 C (97.2 F) 01/31/2022 1:29 PM EDT Respiratory Rate 16 04/07/2018 2:58 AM EST Oxygen Saturation 98% 01/31/2022 1:29 PM EDT Inhaled Oxygen Concentration - - Weight 79.4 kg (175 lb) 01/31/2022 1:29 PM EDT Height 170.2 cm (5' 7 ) 12/08/2021 9:43 AM EDT Body Mass Index 27.41 12/08/2021 9:43 AM EDT Plan of Treatment Health Maintenance Due Date Last Done Comments Depression Monitoring 1982 HIV screen 1985 Hepatitis C screen 1988 DTaP/Tdap/Td vaccine (1 - Tdap) 1989 Hepatitis B vaccine (1 of 3 - 19+ 3-dose series) 1989 Colonoscopy 2015 Colorectal Cancer Screen 2015 FIT/FOBT: Average risk 2015 Fecal-DNA (Cologuard): Average risk 2015 Sigmoidoscopy/CT colonography 2015 Pneumococcal 50+ years Vaccine (1 of 1 - PCV) 2020 Shingles vaccine (1 of 2) 2020 COVID-19 Vaccine (4 - season) 2023 03/10/2021, 05/15/2020, 04/17/2020 Breast cancer screen 03/07/2024 03/07/2022 Flu vaccine (Season Ended) 2024 01/31/2022, Pap smear 12/08/2024 12/08/2021 Lipids 06/18/2026 06/18/2021, 04/10, 08/29/2016, Additional history exists Cervical cancer screen 12/08/2026 HPV (without or with Pap) 12/08/2026 12/08/2021 Hepatitis A vaccine Aged Out No longe r eligible based on patient's age to complete this topic Hib vaccine Aged Out No longer eligi ble based on patient's age to complete this topic Meningococcal (ACWY) vaccine Aged Out No longer eligible based on patient's age to complete this topic Meningococcal B vaccine Aged Out No l onger eligible based on patient's age to complete this topic Polio vaccine Aged Out No longer elig ible based on patient's age to complete this topic Procedures Procedure Name Priority Date/Time Associated Diagnosis Comments KRISTIAN DIGITAL SCREEN W OR WO CAD BILATERAL Routine 03/07/2022 Breast cancer screening by mammogram HPV, HIGH RISK Routine 12/08/2021 10:17 AM EDT PAP SMEAR Routine 12/08/2021 10:17 AM EDT LIPID PANEL Routine 06/18/2021 8:27 AM EST Annual physical exam from Last 3 Months or Most Recently Relevant to Health Maintenance Results * KRISTIAN DIGITAL SCREEN BILATERAL PER PROTOCOL (03/07/2022) Anatomical Region Laterality Modality Breast Bilateral Mammography Nick Car Jose CNM IMG MAMMOGRAPHY ORDERAB LES Final Result * HPV, High Risk (12/08/2021 10:17 AM EDT) HPV, Interpretation NEGATIVE NEGATIVE [facility] HPV, Genotype 16 NEGATIVE [facility] HPV, Genotype 18 NEGATIVE [facility] Other HR HPV Genotypes NEGATIVE [facility] Comment: Testing methodology is real-time PCR utilizing hydrolysis probes with the Gali Magaly 4800 system. The test individually detects genotypes 16 and 18, as well as the other 12 high risk types (31,33,35,39,45,51,52,56,58,59,66,68). The expected result is negative. A negative result does not rule out the presence of HPV not included in the genotype set, a low level of infection or specimen sampling error. Test performed at [facility] [address] [place] [address] CLIA Number [id number] CAP Accreditation Number [id number] [address] [place] [address] CLIA No. [id number] CAP Accreditation No. [id number] Digital Media Sales Consultant: Chelsie Martins M.D. 12/08/2021 10:1 7 AM EDT 12/09/2021 3:51 AM EDT Narrative [facility] - 12/10/2021 2:53 PM EDT Ordering Provider: NICK YOON Nick Jose CNM MICROBIOLOGY - GENERAL ORDERABLES Final Result [facility] * PAP SMEAR (12/08/2021 10:17 AM EDT) Source Cervical [facility] Slides 1 [facility] Last Menstrual Period 10/31/2021 [facility] Specimen adequacy: [facility] Comment: Satisfactory for evaluation. Endocervical cells/transformation zone component present. Interpretation: SEE NOTE -[facility] Comment: NILM/NO EPITH. ABNORMALITY;SEE BELOW NEGATIVE FOR INTRAEPITHELIAL LESION OR MALIGNANCY (NILM) Sales Department Supervisor SEE NOTE -[facility] Comment:Gabby Farley Location [facility] Comment: Specimens processed and interpreted at [facility], [address] [place] [address], , CLIA: [id number] CPT Code -[facility] Comment: [id number] UNLESS OTHERWISE INDICATED, COMPUTER AIDED AND COMMUNITY ASSOCIATE SCREENING PERFORMED. The Pap test is a screening test with an inherent, but low probability of error. Your patient should be reminded to consult you immediately if she experiences any suspicious signs or symptoms, regardless of her Pap test result. An alternate report format containing images or consolidated prior Pap history is available as applicable. Test performed at [facility], [facility]. [address] [place] [address] CLIA Number [id number] [facility] Accreditation Number [id number] 12/08/2021 10:1 7 AM EDT 12/09/2021 3:51 AM EDT Narrative [facility] - 12/10/2021 3:00 PM EDT Ordering Provider: NICK YOON Nick Yoon ECONOMICS DEPARTMENT CHAIR - CNM PATHOLOGY/CYTOLOGY JOSE CONRAD Final Result [facility] * (ABNORMAL) Lipid Panel (06/18/2021 8:27 AM EST) Cholesterol, Total 178 0 - 199 mg/dL 06/18/2021 3:14 PM EST [facility] Triglycerides 73 0 - 149 mg/dL 06/18/2021 3:14 PM EST [facility] HDL 51 >40 mg/dL 06/18/2021 3:14 PM EST [facility] LDL Calculated 112(H) 0 - 99 mg/dL 06/18/2021 3:14 PM EST [facility] VLDL Cholesterol Calculated 15 mg/dL 06/18/2021 3:14 PM EST [facility] BLOOD SPECIMEN / Unknown 06/18/2021 8:27 AM EST 06/18/2021 2:00 PM EST Vimal Dominguez DO CHEMISTRY ORDERABLES F inal Result [facility] [address] [place] [address], [facility] [phone] from Last 3 Months or Most Recently Relevant to Health Maintenance Insurance [employer] Member Subscriber Plan / Payer (Ef fective 2015-Present) Name:Fany Ch Relation to Subscriber:Spouse Name:GUY CH Date of :1969 (Home) Address: [address] [place] [address] Payer ID:Not on file Type:Not on file Address: [address] [place] [phone] [employer] Member Subscriber Plan / Payer (Ef fective 2015-Present) Name:Fany Ch Relation to Subscriber:Spouse Name:GUY CH Date of :1969 (Home) Address: [address] [place] [phone] Payer ID:Not on file Type:Not on file Address: [address] [place] [phone] [employer] Member Subscriber Plan / Payer (Ef fective 2015-Present) Name:Fany Ch Relation to Subscriber:Spouse Name:GUY CH Date of :1969 (Home) Address: [address] [place] [address] Payer ID:Not on file Type:Not on file Address: [address] [place] [phone] Care Teams Children'S Counselor Relationship Specialty Start Date End Date Vimal Dominguez, [address] [place] [address] PCP - General 08/10/16
--- OUTSIDE RECORDS SUMMARY | 2024-09-30 08:20 | XMS_ITS | Encounter Summary ---
Author Organization [facility] Address [address] [place] [address] Care Team Providers Care Reliability Manager Name Role Phone Vimal Dominguez DO Primary Care Provider Reason for Visit * Reason Comments Medication Refill Encounter Details Date Type Department Care Team (Late st Contact Info) Description 06/12/2017 [facility]ill [facility] [address] [facility] [place] [address] Vimal Dominguez DO [address] [place] [phone] Medication Refill Social History Tobacco Use Types Packs/Day Years Used Date Smoking Tobacco: Never Alcohol Use Standard Drinks/Week Comments Yes 0 (1 standard drink = 0.6 oz pur e alcohol) socially Comments Unknown Sex and Gender Information Value Date Recorded Sex Assigned at Not on file Legal Sex Female 1:48 AM EST Gender Identity Not on file Sexual Orientation Not on file documented as of this encounter Plan of Treatment Not on file documented as of this encounter Visit Diagnoses Not on filedocumented in this encounter Care Teams Reliability Manager Relationship Specialty Start Date End Date Vimal Dominguez DO [address] [place], [place] [phone] PCP - General 08/10/16 documented as of this encounter
--- OUTSIDE RECORDS SUMMARY | 2024-09-30 08:37 | XMS_ITS | CCD ---
Author Organization [facility] Inform ion Partnership [facility] Care Team Providers Care Extension Service Specialist In Charge Name Role Phone LUDWIN ERICKSON Referring Unavaila ble LUDWIN ERICKSON Primary Care Unavaila ble LUDWIN ERICKSON Primary Care Unavaila PRETTY Stewart Attending Unavailable LUDWIN ERICKSON Referring Unavaila ble LUDWIN ERICSKON Primary Care Unavaila ble Ludwin Erickson DO Primary Care Provider MD Jey Ward Attending Provider Unavailable Primary Care Provider UnavailBARB Rose Attending Unavailable Jey Ward Attending Unavailable Jey Ward Primary Care Unavailable Jey Ward Admitting Unavailable Medications Current Medications Medication Drug Class(es) Dates Sig (Normalized) Sig (Original) dexlansoprazole 30 mg delayed release oral capsule (1 source) Proton Pump Inhibitor Start: 01-21-2019 take 1 capsule by mouth once daily dexlansoprazole (DEXILANT) 30 MG CPDR delayed release capsule Indications: Gastroesophageal reflux disease, esophagitis presence not specified Take 30 mg by mouth daily 30 capsule 2 01/21/2019 Active escitalopram 10 mg oral tablet (5 sources) Serotonin Reuptake Inhibitor Start: 12-09-2004 take 1 tablet by mouth once daily escitalopram (Lexapro) 10 MG tablet Take 10 mg by mouth Daily 12/09/2004 Active omeprazole 20 mg delayed release oral capsule (5 sources) Proton Pump Inhibitor Start: 03-24-2019 take 1 capsule by mouth once daily omeprazole (PRILOSEC) 20 MG delayed release capsule TAKE ONE CAPSULE BY MOUTH EVERY DAY 30 capsule 5 03/24/2019 Active valACYclovir 1000 mg oral tablet (5 sources) Herpesvirus Nucleoside Analog DNA Polymerase Inhibitor, Herpes Simplex Virus Nucleoside Analog DNA Polymerase Inhibitor, Herpes Zoster Virus Nucleoside Analog DNA Polymerase Inhibitor Start: 11-20-2018 valACYclovir (VALTREX) 1 g tablet Take 2 tablets by mouth 2 times daily Two initially and then two more 12 hours later 28 tablet 0 11/20/2018 Active valACYclovir (Va ltrex) 1 g tablet Take 1,000 mg by mouth if needed Active Problems Active Problems Problem Classification Problem Date Documented Date Episodic/Chronic Esophageal disorders (2 sources) Gastro-esophageal reflux disease without esophagitis; Translations: [Gastroesophageal reflux disease] Onset: 07-30-2015 07-30-2015 Chronic Mood disorders (1 source) Depressive disorder Onset: 07-30-2015 07-30-2015 Chronic Other screening for suspected conditions (not mental disorders or infectious disease) (2 sources) Patient encounter status; Translations: [Encounter for screening mammogram for malignant neoplasm of breast] 06-06-2024 Episodic Residual codes; unclassified (2 sources) Postmenopausal state; Translations: [Asymptomatic menopausal state] 06-06-2024 Episodic Past or Other Problems Problem Classification Problem Date Documented Da te Episodic/Chronic Abdominal pain (1 source) Epigastric pain; Translations: [Epigastric pain] Onset: 10-09-2017 Episodic Malaise and fatigue (1 source) Fatigue Episodic Results Test Name Value Interpretation Reference Range Facility MM TOMOSYNTHESIS SCREENING B Ion 08-23-2024 [place] [address] Mammography Report Signed Patient: FANY CH MR#: [id number] : 1970 Acct:[id number] Age/Sex: 54 / F ADM Date: 08/05/24 Loc: MAMMO Attending Dr: Barb Lr Ordering Physician: Barb Lr Results: Date of Service: 08/05/24 Follow Up: Procedure(s): MM tomosynthesis screening BI Accession Number(s): [id number] cc: Jey Lamas M.D. Patient Name: FANY CH MR#: [id number] : 1970 Exam Date: 08/05/2024 Ordering Doctor: [...] esophageal cancer at age 78. LOCATION: [facility] BREAST COMPOSITION: There are scattered areas of [...] Signed By: 08/23/24 0851 DD/ 0850 TD/TT: Bilingual School Psychologist: [facility] Radiology, Radiologist, - 08/23/2024 [place] [address] Mammography Report Signed Patient: FANY CH MR#: [id number] : 1970 Acct:[id number] Age/Sex: 54 / F ADM Date: 08/05/24 Loc: MAMMO Attending Dr: Barb Lr Ordering Physician: Barb Lr Results: Date of Service: 08/05/24 Follow Up: Procedure(s): MM tomosynthesis screening BI Accession Number(s): [id number] cc: Barb Lr; Jey Ward M.D. Patient Name: FANY CH MR#: [id number] : 1970 Exam Date: 08/05/2024 Ordering Doctor: [...] esophageal cancer at age 78. LOCATION: [facility] BREAST COMPOSITION: There are scattered areas of [...] Signed By: 08/23/24 0851 DD/ 0850 TD/TT: Bilingual School Psychologist: [facility] Radiology Study observation (narrative) [facility] MM TOMOSYNTHESIS SCREENING B IOrdered By: Radiologist Radiology on 08-23-2024 [facility] Work Phone: IGP,APTIMA HPV,AGE GDLNon AGE GDLN ACOG TESTING Note . [facility] Comment on above: TESTS RESULT FLAG UN ITS REF RANGE LAB Clinician Provided Cytology Information Source.............Cervix;Endocervix No. of containers..01 ThinPrep Vial Age Algo ACOG Jocy... FLAG LEGEND: L-Low Normal,H-High Normal,LL-Alert Low,HH-Alert High <-Panic Low,>-Panic High,A-Abnormal,AA-Critical Abnormal Performed at: 01 =[address] [phone] Darline Zapata MD, HPV APTIMA Negative Negative [facility] Comment on above: This nucleic acid am plification test detects fourteen high- risk HPV types (16,18,31,33,35,39,45,51,52,56,58,59,66,68) without differentiation. Performed at: =[address] [id number] Emergency Medical Dispatcher: Darline Zapata MD, Phone: [phone] Performed at: [address] [id number] Emergency Medical Dispatcher: Darline Zapata MD, Phone: [phone] IGP, APTIMA HPV, RFX 16/18,45 Note . [facility] Comment on above: TESTS RESULT FLAG UN ITS REF RANGE LAB DIAGNOSIS: 02 NEGATIVE FOR INTRAEPITHELIAL LESION OR MALIGNANCY. Specimen adequacy: 02 Satisfactory for evaluation. Endocervical and/or squamous metaplastic cells (endocervical component) are present. Performed by: 02 [facility] [employer] Associate (ASCP) . 02 Note: Note 02 The Pap [...] L-Low Normal,H-High Normal,LL-Alert Low,HH-Alert High <-Panic Low,>-Panic High,A-Abnormal,AA-Critical Abnormal Performed at: [address] [phone] Darline Zapata MD, BRUSH-SPATULA CERVIX ENDOCERVIX [facility] Alanine aminotransferase [En zymatic activity/volume] in Serum or PlasmaOrdered By: Jey Ward on 08-02-2023 ALT [Catalytic activity/Vol] 15 U/L 7-52 [facility] Albumin [Mass/volume] in Ser um or Plasma by Bromocresol green (BCG) dye binding methoOrdered By: Jey Ward on 08-02-2023 Albumin BCG dye [Mass/Vol] 4.2 g/dL 3.5-5.7 [facility] Alkaline phosphatase [Enzyma tic activity/volume] in Serum or PlasmaOrdered By: Jey Ward on 08-02-2023 ALP [Catalytic activity/Vol] 63 U/L 34-104 [facility] Aspartate aminotransferase [ Enzymatic activity/volume] in Serum or PlasmaOrdered By: Jey Ward on 08-02-2023 AST [Catalytic activity/Vol] 17 U/L 13-39 [facility] Basophils Auto (Bld) [#/Vol] Ordered By: Jey Ward on 08-02-2023 Basophils (Bld) [#/Vol] 0.1 10*3/uL 0.0-0.2 [facility] Basophils/100 WBC Auto (Bld) Ordered By: Jey Ward on 08-02-2023 Basophils/100 WBC (Bld) 1.2 % . [facility] Bilirubin.total [Mass/volume ] in Serum or PlasmaOrdered By: Jey Ward 08-02-2023 Bilirubin [Mass/Vol] 1.1 mg/dL 0.3-1.0 [facility] Calcium [Mass/volume] in Ser um or PlasmaOrdered By: Jey Ward 08-02-2023 Calcium [Mass/Vol] 9.5 mg/dL 8.6-10.3 [facility] Carbon dioxide, total [Moles /volume] in Serum or PlasmaOrdered By: Jey Ward 08-02-2023 CO2 [Moles/Vol] 29.7 mmol/L 21.0-31.0 [facility] Chloride [Moles/volume] in S tom or PlasmaOrdered By: Jey Ward 08-02-2023 Chloride [Moles/Vol] 106 mmol/L 98-107 [facility] Creatinine [Mass/volume] in Serum or PlasmaOrdered By: Jey Ward on 08-02-2023 Creatinine [Mass/Vol] 1.10 mg/dL 0.60-1.20 [facility] Eosinophils Auto (Bld) [#/Vo l]Ordered By: Jey Ward on 08-02-2023 Eosinophils (Bld) [#/Vol] 0.2 10*3/uL 0.0-0.45 [facility] Eosinophils/100 WBC Auto (Bl d)Ordered By: Jey Ward on 08-02-2023 Eosinophils/100 WBC (Bld) 3.2 % . [facility] Erythrocyte distribution wid th Auto (RBC) [Ratio]Ordered By: Jey Ward on 08-02-2023 Erythrocyte distribution width (RBC) [Ratio] 13.3 % 11.9-15.3 [facility] Globulin Calc (S) [Mass/Vol] Ordered By: Jey Ward on 08-02-2023 Globulin (S) [Mass/Vol] 2.8 g/dL [facility] Glucose [Mass/volume] in Ser um or PlasmaOrdered By: Jey Ward on 08-02-2023 Glucose [Mass/Vol] 93 mg/dL 70-100 [facility] Comment on above: ADA recommended refe rence rangeRandom Glucose Reference Range is dependent on time and content of last meal. Glucose of more than 200 mg/dL in a nonstressed, ambulatory subject supports the diagnosis of Diabetes Mellitus. Glucose mean value [Mass/vol ume] in Blood Estimated from glycated hemoglobinOrdered By: Jey Ward on 08-02-2023 Average glucose Estimated from glycated hemoglobin (Bld) [Mass/Vol] 111 mg/dL [facility] Hematocrit Auto (Bld) [Volum e fraction]Ordered By: Jey Ward on 08-02-2023 Hematocrit (Bld) [Volume fraction] 40.6 % 34.0-46.4 [facility] Hemoglobin A1c percentageOrd ered By: Jey Ward on 08-02-2023 HbA1c (Bld) [Mass fraction] 5.5 % 4.3-5.6 [facility] Comment on above: Increased risk for d iabetes: 5.7 - 6.4diabetes: >6.4glycemic control for adults with diabetes: <7.0 Hemoglobin [Mass/volume] in BloodOrdered By: Jey Ward on 08-02-2023 Hemoglobin (Bld) [Mass/Vol] 13.9 g/dL 11.8-15.4 [facility] Leukocytes [#/volume] correc irasema for nucleated erythrocytes in Blood by Automated counOrdered By: Jey Ward on 08-02-2023 WBC corrected for nucl RBC Auto (Bld) [#/Vol] 6.9 10*3/uL 3.8-11.6 [facility] Lymphocytes Auto (Bld) [#/Vo l]Ordered By: Jey Ward on 08-02-2023 Lymphocytes (Bld) [#/Vol] 2.1 10*3/uL 1.00-4.8 [facility] Lymphocytes/100 WBC Auto (Bl d)Ordered By: Jey Ward on 08-02-2023 Lymphocytes/100 WBC (Bld) 30.4 % . [facility] MCH Auto (RBC) [Entitic mass ]Ordered By: Jey Ward on 08-02-2023 MCH (RBC) [Entitic mass] 31.1 pg 24.7-34.3 [facility] MCHC Auto (RBC) [Mass/Vol]Or dered By: Jey Ward on 08-02-2023 MCHC (RBC) [Mass/Vol] 34.2 g/dL 32.0-35.0 [facility] MCV Auto (RBC) [Entitic vol] Ordered By: Jey Ward on 08-02-2023 MCV (RBC) [Entitic vol] 91.1 fL 80-100 [facility] Monocytes Auto (Bld) [#/Vol] Ordered By: Jey Ward on 08-02-2023 Monocytes (Bld) [#/Vol] 0.6 10*3/uL 0.0-0.8 [facility] Monocytes/100 WBC Auto (Bld) Ordered By: Jey Ward on 08-02-2023 Monocytes/100 WBC (Bld) 7.9 % . [facility] Neutrophils Auto (Bld) [#/Vo l]Ordered By: Jey Ward on 08-02-2023 Neutrophils (Bld) [#/Vol] 4.0 10*3/uL 1.8-7.7 [facility] Neutrophils/100 WBC Auto (Bl d)Ordered By: Jey Ward on 08-02-2023 Neutrophils/100 WBC (Bld) 57.3 % . [facility] No Panel InformationOrdered By: Jey Ward on 08-02-2023 Estimated GFR (CKD-EPI) > 60.0 mL/Min [facility] Creatinine Clearance (Chem N/A [facility] Nucleated erythrocytes [Pres ence] in Blood by Automated countOrdered By: Jey Wrad on 08-02-2023 Nucleated RBC Auto Ql (Bld) 0.1 /100{WBC} 0-0.5 [facility] Platelet mean volume Auto (B ld) [Entitic vol]Ordered By: Jey Ward on 08-02-2023 Platelet mean volume (Bld) [Entitic vol] 7.7 fL 6.3-10.7 [facility] Platelets Auto (Bld) [#/Vol] Ordered By: Jey Ward on 08-02-2023 Platelets (Bld) [#/Vol] 255 10*3/uL 150-450 [facility] Potassium [Moles/volume] in Serum or PlasmaOrdered By: Jey Ward on 08-02-2023 Potassium [Moles/Vol] 4.2 mmol/L 3.5-5.1 [facility] Protein [Mass/volume] in Ser um or PlasmaOrdered By: Jey Ward on 08-02-2023 Protein [Mass/Vol] 7.0 g/dL 6.4-8.9 [facility] RBC Auto (Bld) [#/Vol]Ordere d By: Jey Ward on 08-02-2023 RBC (Bld) [#/Vol] 4.45 10*6/uL 3.60-5.00 [facility] Serum or plasma albumin/glob ulin mass ratioOrdered By: Jey Ward on 08-02-2023 Albumin/Globulin [Mass ratio] 1.5 {ratio} [facility] Serum or plasma anion gap de terminationOrdered By: Jey Ward on 08-02-2023 Anion gap [Moles/Vol] 8.5 mmol/L 6.0-15.0 [facility] Sodium [Moles/volume] in Ser um or PlasmaOrdered By: Jey Ward on 08-02-2023 Sodium [Moles/Vol] 140 mmol/L 136-145 [facility] Thyrotropin [Units/volume] i n Serum or PlasmaOrdered By: Jey Ward on 08-02-2023 TSH Qn 1.80 m[IU]/L 0.45-5.33 [facility] Thyroxine (T4) free [Mass/vo lume] in Serum or PlasmaOrdered By: Jey Ward on 08-02-2023 Free T4 [Mass/Vol] 0.87 ng/dL 0.61-1.12 [facility] Urea nitrogen [Mass/volume] in Serum or PlasmaOrdered By: Jey Ward on 08-02-2023 Urea nitrogen [Mass/Vol] 17 mg/dL 7-25 [facility] Vitamin D+Metabolites [Mass/ volume] in Serum or PlasmaOrdered By: Jey Ward on 08-02-2023 Vitamin D+Metabolites [Mass/Vol] 32.6 ng/mL 30-100 [facility] Comment on above: VITAMIN D STATUS 25( OH)VITAMIN D RANGE (ng/mL) Deficient <20 Insufficient 20 to <30Sufficient 30 to 100Reference: Alan MF,Flex NC, Jose PATRICK, et al. Evaluation,treatment, and prevention of vitamin D deficiency; an Endocrine Society clinical practice guideline. JCEM. 2010; 96(7):1911-30. WBC Auto (Bld) [#/Vol]Ordere d By: Jey Ward on 08-02-2023 WBC (Bld) [#/Vol] 6.9 10*3/uL 3.8-11.6 [facility] CBC With Platelet No Differe ntialon 06-18-2021 Hematocrit (Bld) [Volume fraction] 41.7 % Normal 34.0-48.0 [facility] Hemoglobin (Bld) [Mass/Vol] 13.9 g/dL Normal 11.5-15.5 [facility] MCH (RBC) [Entitic mass] 31.8 pg Normal 26.0-35.0 [facility] MCHC 33.3 % Normal 32.0-34.5 [facility] MCV (RBC) [Entitic vol] 95.4 fL Normal 80.0-99.9 [facility] Platelet Count 280 E9/L Normal 130-450 [facility] Platelet mean volume (Bld) [Entitic vol] 9.6 fL Normal 7.0-12.0 [facility] RBC 4.37 E12/L Normal 3.50-5.50 [facility] RDW 13.2 fL Normal 11.5-15.0 [facility] WBC 6.3 E9/L Normal 4.5-11.5 [facility] Comprehensive Metabolic Pane candida 06-18-2021 Albumin [Mass/Vol] 4.1 g/dL Normal 3.5-5.2 [facility] ALP [Catalytic activity/Vol] 50 U/L Normal 35-104 [facility] ALT [Catalytic activity/Vol] 10 U/L Normal 0-32 [facility] Anion gap [Moles/Vol] 11 mmol/L Normal 7-16 [facility] AST [Catalytic activity/Vol] 18 U/L Normal 0-31 [facility] Bilirubin [Mass/Vol] 1.2 mg/dL Normal 0.0-1.2 [facility] Calcium [Mass/Vol] 9.3 mg/dL Normal 8.6-10.2 [facility] Chloride [Moles/Vol] 102 mmol/L Normal 98-107 [facility] CO2 [Moles/Vol] 23 mmol/L Normal 22-29 [facility] Creatinine [Mass/Vol] 1.1 mg/dL High 0.5-1.0 [facility] GFR/1.73 sq M.predicted among blacks MDRD (S/P/Bld) [Vol rate/Area] mL/min/{1.73_m2} Normal [facility] GFR/1.73 sq M.predicted among non-blacks MDRD (S/P/Bld) [Vol rate/Area] 52 mL/min/{1.73_m2} Normal >=60 [facility] Comment on above: Result Comment: [employer] gerhard Kidney Disease: less than 60 ml/min/1.73 sq.m. Kidney Failure: less than 15 ml/min/1.73 sq.m. Results valid for patients 18 years and older. Glucose [Mass/Vol] 95 mg/dL Normal 74-99 [facility] Potassium [Moles/Vol] 4.6 mmol/L Normal 3.5-5.0 [facility] Protein [Mass/Vol] 7.2 g/dL Normal 6.4-8.3 [facility] Sodium [Moles/Vol] 136 mmol/L Normal 132-146 [facility] Urea nitrogen [Mass/Vol] 16 mg/dL Normal 6-20 [facility] Lipid Panelon 06-18-2021 Cholesterol [Mass/Vol] 178 mg/dL Normal 0-199 [facility] Cholesterol in HDL [Mass/Vol] 51 mg/dL Normal >40 [facility] Cholesterol in LDL [Mass/Vol] 112 mg/dL High 0-99 [facility] Triglyceride [Mass/Vol] 73 mg/dL Normal 0-149 [facility] VLDL Cholesterol (Calculated) 15 mg/dL Normal [facility] Basic Metabolic Panelon 04-10 Anion gap [Moles/Vol] 16 mmol/L Normal 7-16 [facility] Calcium [Mass/Vol] 9.3 mg/dL Normal 8.6-10.2 [facility] Chloride [Moles/Vol] 101 mmol/L Normal 98-107 [facility] CO2 [Moles/Vol] 21 mmol/L Low 22-29 [facility] Creatinine [Mass/Vol] 1.0 mg/dL Normal 0.5-1.0 [facility] GFR/1.73 sq M predicted among blacks MDRD (S/P/Bld) [Vol rate/Area] mL/min/{1.73_m2} Normal [facility] GFR/1.73 sq M predicted among non-blacks MDRD (S/P/Bld) [Vol rate/Area] 59 mL/min/{1.73_m2} Normal >=60 [facility] Comment on above: Result Comment: [employer] As[employer]er gerhard Kidney Disease: less than 60 ml/min/1.73 sq.m. Kidney Failure: less than 15 ml/min/1.73 sq.m. Results valid for patients 18 years and older. Glucose [Mass/Vol] 94 mg/dL Normal 74-99 [facility] Potassium [Moles/Vol] 4.4 mmol/L Normal 3.5-5.0 [facility] Sodium [Moles/Vol] 138 mmol/L Normal 132-146 [facility] Urea nitrogen [Mass/Vol] 16 mg/dL Normal 6-20 [facility] Basic Metabolic PanelOrdered By: Ludwin Erickson on 04-23-2019 Anion gap [Moles/Vol] 16 mmol/L 7 - 16 mmol/L [employer] Phone: Calcium [Mass/Vol] 9.3 mg/dL 8.6 - 10. 2 mg/dL [employer] Phone: Chloride [Moles/Vol] 101 mmol/L 98 - 10 7 mmol/L [employer] Phone: CO2 [Moles/Vol] 21 mmol/L Low 22 - 29 mmol/L [employer] Phone: Creatinine [Mass/Vol] 1 mg/dL 0.5 - 1 mg/dL [employer] Phone: GFR >60 [facility] Work Phone: GFR Non- 59 mL/min/1.73 >=60 [employer] Phone: Comment on above: Chronic Kidney Disea se: less than 60 ml/min/1.73 sq.m. Kidney Failure: less than 15 ml/min/1.73 sq.m. Results valid for patients 18 years and older. Glucose [Mass/Vol] 94 mg/dL 74 - 99 mg/dL [facility] [address] Give Phone: Interpretation and review of laboratory results Abnormal [employer] Phone: Potassium [Moles/Vol] 4.4 mmol/L 3.5 - 5 mmol/L [employer] [facility] Phone: Sodium [Moles/Vol] 138 mmol/L 132 - 146 mmol/L [employer] [facility] Phone: Urea nitrogen [Mass/Vol] 16 mg/dL 6 - 20 mg/d L [employer] Phone: CBCOrdered By: Ludwin joshi on 04-23-2019 Hematocrit (Bld) [Volume fraction] 42.0 % 34 - 48 % [employer] Phone: Hemoglobin (Bld) [Mass/Vol] 13.3 g/dL 11.5 - 15.5 g/dL [employer] Phone: Interpretation and review of laboratory results Abnormal [employer] Phone: MCH (RBC) [Entitic mass] 30.6 pg 26 - 35 pg [employer] Phone: MCHC 31.7 % Low 32 - 34.5 % [employer] Phone: MCV (RBC) [Entitic vol] 96.6 fL 80 - 99.9 fL [employer] Phone: Platelet mean volume (Bld) [Entitic vol] 9.7 fL 7 - 12 fL [employer] Phone: Platelets (Bld) [#/Vol] 334 10*3/uL [employer] Phone: RBC (Bld) [#/Vol] 4.35 10*6/uL [employer] Phone: RDW 13.0 fL 11.5 - 15 fL [employer] Phone: WBC (Bld) [#/Vol] 7.3 10*3/uL [facility] [address] Give Phone: CBC With Platelet No Differe ntialon 04-23-2019 Erythrocyte distribution width (RBC) [Ratio] 13.0 fL Normal 11.5-15.0 [facility] Hematocrit (Bld) [Volume fraction] 42.0 % Normal 34.0-48.0 [facility] Hemoglobin (Bld) [Mass/Vol] 13.3 g/dL Normal 11.5-15.5 [facility] MCH (RBC) [Entitic mass] 30.6 pg Normal 26.0-35.0 [facility] MCHC (RBC) [Mass/Vol] 31.7 % Low 32.0-34.5 [facility] MCV (RBC) [Entitic vol] 96.6 fL Normal 80.0-99.9 [facility] Platelet mean volume (Bld) [Entitic vol] 9.7 fL Normal 7.0-12.0 [facility] Platelets (Bld) [#/Vol] 334 E9/L Normal 130-450 [facility] RBC (Bld) [#/Vol] 4.35 E12/L Normal 3.50-5.50 [facility] WBC (Bld) [#/Vol] 7.3 E9/L Normal 4.5-11.5 [facility] Lipid Panelon 04-23-2019 Cholesterol [Mass/Vol] 142 mg/dL Normal 0-199 [facility] Cholesterol in HDL [Mass/Vol] 45 mg/dL Normal >40 [facility] Cholesterol in LDL [Mass/Vol] 83 mg/dL Normal 0-99 [facility] Triglyceride [Mass/Vol] 72 mg/dL Normal 0-149 [facility] VLDL Cholesterol (Calculated) 14 mg/dL Normal [facility] Lipid PanelOrdered By: Pipe Erickson on 04-23-2019 Cholesterol [Mass/Vol] 142 mg/dL 0 - 199 mg/dL [employer] Work Phone: Cholesterol in HDL [Mass/Vol] 45 mg/dL >40 [employer] Work Phone: Cholesterol in LDL [Mass/Vol] 83 mg/dL 0 - 99 mg/dL [employer] Work Phone: Magnesium [Mass/Vol] 14 mg/dL [facility] Work Phone: Triglyceride [Mass/Vol] 72 mg/dL 0 - 149 mg/d L [employer] Work Phone: TSH w/out Reflexon 0 TSH Qn 1.350 uIU/mL Normal 0.270-4.200 [facility] TSH without ReflexOrdered By : Ludwin Erickson on 04-23-2019 TSH Qn 1.350 m[IU]/L [employer] Work Phone: Vitamin D 25 HydroxyOrdered By: Ludwin Erickson on 04-23-2019 Vit D, 25-Hydroxy 31 ng/mL 30 - 100 ng/mL [employer] Phone: Comment on above: <20 ng/mL........... ..Deficient 20-30 ng/mL...........Insufficient 30-100 ng/mL..........Sufficient >100 ng/mL............Toxic Vitamin D, 25-hydroxyon 04-10 Vitamin D, 25-hydroxy 31 ng/mL Normal 30-100 [facility] Comment on above: Result Comment: <20 ng/mL.............Deficient 20-30 ng/mL...........Insufficient 30-100 ng/mL..........Sufficient >100 ng/mL............Toxic Basic Metabolic Panelon 12-2 Anion gap molar conc 12 mmol/L Normal 7-16 [facility] Calcium mass conc 9.6 mg/dL Normal 8.6-10.2 [facility] Chloride molar conc 99 mmol/L Normal 98-107 [facility] CO2 molar conc 23 mmol/L Normal 22-29 [facility] Creatinine mass conc 1.1 mg/dL High 0.5-1.0 [facility] GFR/1.73 sq M predicted among blacks MDRD vol rate/area (S/P/Bld) mL/min/{1.73_m2} Normal [facility] GFR/1.73 sq M predicted among non-blacks MDRD vol rate/area (S/P/Bld) 53 mL/min/{1.73_m2} Normal >=60 [facility] Comment on above: Result Comment: [employer] gerhard Kidney Disease: less than 60 ml/min/1.73 sq.m. Kidney Failure: less than 15 ml/min/1.73 sq.m. Results valid for patients 18 years and older. Glucose mass conc 128 mg/dL High 74-99 [facility] Potassium molar conc 4.4 mmol/L Normal 3.5-5.0 [facility] Sodium molar conc 134 mmol/L Normal 132-146 [facility] Urea nitrogen mass conc 17 mg/dL Normal 6-20 [facility] CBC With Platelet and Differ entialon 04-07-2018 Abs Imm Granulocytes 0.09 E9/L Normal [facility] Basophils #/vol (Bld) 0.06 E9/L Normal 0.00-0.20 [facility] Basophils/100 WBC (Bld) 0.4 % Normal 0.0-2.0 [facility] Eosinophils #/vol (Bld) 0.00 E9/L Low 0.05-0.50 [facility] Eosinophils/100 WBC (Bld) 0.0 % Normal 0.0-6.0 [facility] Erythrocyte distribution width Ratio (RBC) 13.0 fL Normal 11.5-15.0 [facility] Hematocrit Volume Fraction (Bld) 38.9 % Normal 34.0-48.0 [facility] Hemoglobin mass conc (Bld) 13.4 g/dL Normal 11.5-15.5 [facility] Imm Granulocytes 0.6 % Normal 0.0-5.0 [facility] Lymphocytes #/vol (Bld) 0.94 E9/L Low 1.50-4.00 [facility] Lymphocytes/100 WBC (Bld) 6.7 % Low 20.0-42.0 [facility] MCH Entitic mass (RBC) 31.6 pg Normal 26.0-35.0 [facility] MCHC mass conc (RBC) 34.4 % Normal 32.0-34.5 [facility] MCV Entitic volume (RBC) 91.7 fL Normal 80.0-99.9 [facility] Monocytes #/vol (Bld) 0.63 E9/L Normal 0.10-0.95 [facility] Monocytes/100 WBC (Bld) 4.5 % Normal 2.0-12.0 [facility] Neutrophils #/vol (Bld) 12.25 E9/L High 1.80-7.30 [facility] Neutrophils/100 WBC (Bld) 87.8 % High 43.0-80.0 [facility] Platelet mean volume Entitic volume (Bld) 9.1 fL Normal 7.0-12.0 [facility] Platelets #/vol (Bld) 233 E9/L Normal 130-450 [facility] RBC #/vol (Bld) 4.24 E12/L Normal 3.50-5.50 [facility] WBC #/vol (Bld) 14.0 E9/L High 4.5-11.5 [facility] Troponinon 04-07-2018 Troponin I.cardiac mass conc ng/mL Normal 0.00-0.03 [facility] Comment on above: Result Comment: TROP ONIN T BLOOD LEVELS: 0.03 ng/mL Upper Reference Limit 0.04 - 0.09 ng/mL Possible myocardial injury >= 0.10 ng/mL Myocardial injury XR CHEST PORTABLEon 04-07-20 18 XR CHEST PORTABLE Patient : 1970 Age: 47 years Gender: Female Order Date: 04/07/2018 12:15 AM EXAM: XR CHEST PORTABLE NUMBER OF IMAGES: 1 INDICATION: chest pain chest pain COMPARISON: None FINDINGS: The heart is normal in size. There is a normal appearance to the pulmonary vasculature. No focal airspace opacity or evidence of pleural effusion. No pneumothorax. No free air beneath the diaphragm. IMPRESSION: No airspace opacities or pleural effusion. Interpreted by: Celso Hunt MD Signed by: Celso Hunt MD 04/07/18 Final result Normal [facility] US GALLBLADDER RUQon 018 US GALLBLADDER RUQ Patient : 1970 Age: 47 years Gender: Female Order Date: 10/09/2017 12:19 PM EXAM: US GALLBLADDER RUQ NUMBER OF IMAGES: 34 INDICATION: R10.13 Epigastric pain other COMPARISON: None Technique: Grayscale ultrasound of the right upper quadrant of the abdomen was performed with color Doppler supplementation. Findings: The common bile duct measures 6 mm in diameter. The gallbladder shows several shadowing gallstones. There is no gallbladder wall thickening or pericholecystic fluid. The dental technologist reports a negative sonographic Rodas's sign. IMPRESSION: Cholelithiasis without sonographic evidence of gallbladder wall thickening. Interpreted by: Gene Vergara MD Signed by: Gene Vergara MD 10/09/17 Final result Normal [facility] Vital Signs Date Time Vital Sign Value Performing Clinician Margaret gunter 06-06-2024 10:22-0500 Body weight 72.03 kg Barb DUARTE Work Phone: [facility] 06-06-2024 10:22-0500 Diastolic blood pressure 70 mm[Hg] Barb Lr PA Work Phone: [facility] 06-06-2024 10:22-0500 Systolic blood pressure 112 mm[Hg] Barb Lr PA Work Phone: [facility] Encounters Encounter Date Encounter Type Care Provider Facility Start: 09-04-2024 ambulatory Jey Ward Facility: [facility] Start: 08-23-2024 End: 08-23-2024 Clinisync Result Encounter Barb DURATE Work Phone: [facility] Unsolicited Start: 08-23-2024 End: 08-23-2024 Clinisync Result Encounter Barb DUARTE Work Phone: [facility]solic[facility] Start: 06-06-2024 End: 06-06-2024 Bamboo flowsheet Barb DUARTE Work Phone: [facility] Start: 06-06-2024 End: 06-11-2024 Bamboo flowsheet Barb Lr PA Work Phone: [facility] Start: 06-06-2024 End: 06-11-2024 Clinisync Result Encounter Barb [place] PA Work Phone: [facility] Unsolic[facility] Start: 06-06-2024 End: 06-06-2024 Patient encounter procedure Barb Lr PA Work Phone: [facility] Work Phone: Start: 06-06-2024 End: 06-06-2024 Periodic preventive med est patient 40-64yrs Barb DUARTE Work Phone: [facility] Comment on above: Well woman exam with routine gynecological exam; Breast cancer screening by mammogram; Postmenopausal state Start: 06-06-2024 End: 06-06-2024 ambulatory BARB LR Not Available Start: 08-02-2023 End: 08-02-2023 ambulatory MD Jey Ward Work Phone: [facility] Work Phone: Start: 08-02-2023 End: 08-02-2023 Patient encounter procedure MD Jey Ward Work Phone: [facility] Rox Redman Work Phone: Start: 04-23-2019 End: 04-26-2019 Patient encounter procedure LUDWIN ERICKSON [facility] Start: 04-23-2019 End: 04-25-2019 Subsequent hospital visit by physician Ludwin Erickson DO Work Phone: [facility] Comment on above: Fatigue, unspecified type Start: 04-07-2018 End: 04-07-2018 Emergency department patient visit LUDWIN ERICKSON [facility] Start: 10-09-2017 End: 10-12-2017 Patient encounter procedure LUDWIN ERICKSON [facility] Procedures Date Procedure Procedure Detail Performing Clinician Start: 08-23-2024 MM TOMOSYNTHESIS SCR EENING BI Barb DUARTE Work Phone: Start: 08-23-2024 Mammography Barb DUARTE Work Phone: Start: 06-06-2024 IGP,APTIMA HPV,AGE GDLN Barb DUARTE Work Phone: Start: 03-07-2022 Mammography Barb DUARTE Work Phone: Start: 04-23-2019 25 hydroxy includes fractions if performed Ludwin Gutiérrez DO Work Phone: Start: 04-23-2019 Assay of thyroid stimulating hormone tsh Ludwin Manuel Angelica DO Work Phone: Start: 04-23-2019 Basic metabolic pane l calcium total Ludwin Gutiérrez DO Work Phone: Start: 04-23-2019 Blood count complete automated Ludwin Gutiérrez DO Work Phone: Start: 04-23-2019 Lipid panel Abdirizak Gutiérrez DO Work Phone: Start: 04-07-2018 Radiologic exam ches t single view LUDWIN ERICKSON Start: 04-07-2018 Basic metabolic pane l calcium total LUDWIN ERICKSON Start: 04-07-2018 Blood count complete auto&auto difrntl wbc LUDWIN ERICKSON Start: 04-07-2018 Troponin I.cardiac m ass conc LUDWIN ERICKSON Start: 04-07-2018 TELEMETRY MONITORING CH ELTON ERICKSON Start: 04-07-2018 PULSE OXIMETRY, CONTINUOUS LUDWIN ERICKSON Start: 04-07-2018 EKG 12-LEAD ABDIRIZAK ERICKSON Start: 10-09-2017 Us abdominal real ti me w/image limited LUDWIN ERICKSON Plan of Treatment Date Care Activity Detail Author Start: 12-08-2026 Screening for malignant neoplasm of cervix [facility] Start: 06-10-2025 End: 06-10-2025 Patient encounter procedure 06/10/2025 11:00 AM EST Office Visit [facility] [address] [address] Barb Lr, PA [address] [place] [address] [facility] Start: 12-09-2024 Influenza vaccination Influenz a Vaccine (Season Ended) [facility] Start: 06-06-2024 End: 06-06-2025 DXA Skeletal system Views for bone density DEXA bone density Imaging Routine Postmenopausal state Expected: 06/06/2024 (Approximate), Expires: 06/06/2025 [facility] Comment on above: Expected: 06/06/2024 (Approximate), Expires: 06/06/2025 Start: 06-06-2024 End: 08-04-2025 MG Breast - bilateral Screening Bilateral screening mammogram Imaging Routine Breast cancer screening by mammogram Expected: 06/06/2024, Expires: 08/04/2025 [facility] Work Phone: Comment on above: Expected: 06/06/2024 , Expires: 08/04/2025 Start: 06-06-2024 End: 06-06-2024 Patient encounter procedure 06/06/2024 10:00 AM EST Office Visit [facility] [address] [address] Barb Lr PA [address] [place] [address] [place] [address] Arrived [facility] Comment on above: Arrived Start: 04-23-2024 Lipid screen Lipid screen [employer] Work Phone: Start: 12-10-2023 Influenza vaccination Influenza Vacc ine (#1) [facility] Start: 03-07-2023 Screening for malignant neoplasm of breast Mammogram [facility] Start: 12-09-2018 Influenza vaccination Flu vaccine (# 1) [employer] Phone: Start: 1991 Cervical cancer screen Cervical canc er screen [facility] Phone: Start: 1991 Screening for malignant neoplasm of cervix Pap Smear [facility] Start: 1985 HIV screen HIV screen [facility] Work Phone: Start: 1981 DTaP/Tdap/Td vaccine (1 - Tdap) DTaP/Tdap/Td vaccine (1 - Tdap) [employer] Phone: Start: 1970 Screening for malignant neoplasm of colon [facility] Insulin [Units/volum e] in Serum or Plasma [facility] THIN PREP TIS PAP AN D HR HPV DNA THIN PREP TIS PAP AND HR HPV DNA Pathology and Cytology Routine Well woman exam with routine gynecological exam Ordered: 06/06/2024 [facility] Comment on above: Ordered: 06/06/2024 Immunizations Immunization Date Immunization Notes Care Provider Fa cility 01-31-2022 influenza virus vacc ine, unspecified formulation Barb DUARTE Work Phone: [facility] Healthcare Payers Date Payer Category Payer Self-pay 2022 [facility] er [id number] 2022 Unknown [id number] 2015 Unknown [id number] 2015 Unknown [employer] [address] xxxxxxxxxxxx 2015-Present [phone] [address] [place] [address] xxxxxxxxxxxx [id number] 1970 Unknown [id number] 1970 Unknown [id number] 1970 Unknown [id number] 1970 Unknown [id number] Unknown [id number] Social History Date Type Detail Facility Start: 01-21-[address] [facility] Never smoker [employer] Phone: Start: 01-21-2019 Alcohol intake Current drinke r of alcohol (finding) [employer] Work Phone: Start: 08-10-2016 Alcohol Comment socially [facility] Work Phone: Start: 1970 Sex Assigned At Not on file [facility] Phone: Start: 1970 Sex Assigned At Female F [facility] Tobacco smoking stat [facility] Tobacco smoking consumption unknown [facility] Start: 06-05-2024 Gender identity Identifies as female gender (finding) [facility] Sexual orientation Not on file [facility] History of Present illness Narrative 06-06-2024 FELICIA Espinosa - 06/06/2024 10:00 AM EST Note Date & Type Note Facility 06-06-2024 History of Presen t illness Narrative Reason for Appointment: Patient ID: Fany Ch is a 54 y.o. female who presents for Well Women Visit Patient presents today for Annual Exam. MEDICATIONS Current Outpatient Medications Medication Instructions escitalopram (LEXAPRO) 10 mg, Daily omeprazole (PRILOSEC) 20 mg, Oral, As needed valACYclovir (VALTREX) 1,000 mg, Oral, As needed ALLERGIES No Known Allergies PROBLEMS Active Ambulatory Problems Diagnosis Date Noted No Active Ambulatory Problems Resolved Ambulatory Problems Diagnosis Date Noted No Resolved Ambulatory Problems No Additional Past Medical History HISTORY PAST MEDICAL HISTORY SOCIAL HISTORY History reviewed. No pertinent past medical history. Social History Tobacco Use Smoking status: Not on file Smokeless tobacco: Not on file Substance Use Topics Alcohol use: Not on file Drug use: Not on file FAMILY HISTORY No family history on file. SURGICAL HISTORY History reviewed. No pertinent surgical history. REVIEW OF SYSTEMS Review of Systems: Review of Systems Constitutional: Negative. HENT: Negative. Eyes: Negative. Respiratory: Negative. Cardiovascular: Negative. Gastrointestinal: Negative. Genitourinary: Negative. Musculoskeletal: Negative. Skin: Negative. Neurological: Negative. All other systems reviewed and are negative. Hematological: Negative. Endocrine: Negative. Allergic/Immunologic: Negative. OBJECTIVE Objective: Physical Exam Constitutional: Appearance: Normal appearance. She is well-developed. Genitourinary: Vulva normal. Right Adnexa: not tender and no mass present. Left Adnexa: not tender and no mass present. No cervical discharge. Breasts: Breasts are soft. Right: Normal. Left: Normal. HENT: Head: Normocephalic. Nose: Nose normal. Mouth/Throat: Mouth: Mucous membranes are moist. Cardiovascular: Rate and Rhythm: Normal rate and regular rhythm. Pulmonary: Effort: Pulmonary effort is normal. Breath sounds: Normal breath sounds. Abdominal: General: Bowel sounds are normal. There is no distension. Palpations: Abdomen is soft. Tenderness: There is no abdominal tenderness. There is no guarding or rebound. Musculoskeletal: General: No swelling. Normal range of motion. Cervical back: Normal range of motion. Right lower leg: No edema. Left lower leg: No edema. Neurological: General: No focal deficit present. Mental Status: She is alert and oriented to person, place, and time. Skin: General: Skin is warm and dry. Psychiatric: Mood and Affect: Mood normal. Behavior: Behavior normal. Vitals and nursing note reviewed. Exam conducted with a securities counselor present. Vitals: There is no height or weight on file to calculate BMI. BP: 112/70 No LMP recorded. ASSESSMENT & PLAN ICD-10-CM 1. Well woman exam with routine gynecological exam Z01.419 THIN PREP TIS PAP AND HR HPV DNA 2. Breast cancer screening by mammogram Z12.31 Bilateral screening mammogram Bilateral screening mammogram 3. Postmenopausal state Z78.0 DEXA bone density Annual Exam: Patient presents today for an annual exam. Patient states she is doing well and has no complaints. Pap was obtained without difficulty. Orders Placed This Encounter Procedures Bilateral screening mammogram DEXA bone density Follow Up: Patient is to return in one year for annual unless needed otherwise. Documented by Sarah Baker LPN on behalf of: FELICIA Espinosa documented in this encounter [facility] Healthcare Evaluation note Note Date & Type Note Facility Evaluation note Diagnosis Fatigue, unspecified type documented in this encounter [facility] Work Phone: Evaluation note Note Date & Type Note Facility Evaluation note No assessment information [facility] Work Phone: Evaluation note Note Date & Type Note Facility Evaluation note Diagnosis Well woman exam with routine gynecological exam Routine gynecological examination Breast cancer screening by mammogram Postmenopausal state Asymptomatic postmenopausal status (age-related) (natural) documented in this encounter [facility] Healthcare Summary Purpose Family History No Family History Records FoundNo Family History Records FoundNo Family History Records FoundNo Family History Records FoundNo Family History Records Found Advance Directives No Advanced Directives Records FoundDocuments on File Type Date Recorded Patient Disc Pad Plate Filler Expl anation Advance Directives and Living Will Power of Regulatory Lead Additional Source Comments INFORMATION SOURCE (unrecogn ized section and content) DATE CREATED AUTHOR 05/04/2018 [facility] DATE CREATED AUTHOR AUTHOR'S ORGANIZ ATION 04/26/2019 [facility] DATE CREATED AUTHOR AUTHOR'S ORGANIZ ATION 06/20/2021 [facility] DATE CREATED AUTHOR AUTHOR'S ORGANIZ ATION 06/08/2024 [facility] DATE CREATED AUTHOR AUTHOR'S ORGANIZ ATION 09/05/2024 [facility] Care Teams (unrecognized sec tion and content) Team Status: Inactive Member Role Status Dates Jey Ward MD Attending Provider Active Sta rt: August 02, 2023 End: August 02, 2023 Goals (unrecognized section and content) Goals may be documented in a n alternate section Reason for Visit (unrecogniz ed section and content) Reason Comments Well Women Visit FOR RECORDS PERTAINING TO PATIENTS WHO ARE OR HAVE BEEN ENROLLED IN A CHEMICAL DEPENDENCY/SUBSTANCEABUSE PROGRAM, SOME INFORMATION MAY BE OMITTED. This clinical summary was aggregated from multiple sources. Caution should be exercised in using it in the provision of clinical care. This summary normalizes information from multiple sources, and as a consequence, information in this document may materially change the coding, format and clinical context of patient data. In addition, data may be omitted in some cases. CLINICAL DECISIONS SHOULD BE BASED ON THE PRIMARY CLINICAL RECORDS. [facility] [employer] provides no warranty or guarantee of the accuracy or completeness of information in this document.
[2024-09-30 08:49] LABS: Basophils Absolute Auto 0.1 10^3/uL (0.0-0.1); Basophils Percent Auto 1.4 % (0.2-2.0); Eosinophils Absolute Auto 0.4 10^3/uL (0.0-0.7); Eosinophils Percent Auto 5.7 % (0.9-7.0); Hematocrit 37.8 % (36.0-48.0); Hemoglobin 13.1 g/dL (12.0-16.0); Immature Granulocytes Abs Auto 0.01 10^3/uL (0.00-0.03); Immature Granulocytes Pct Auto 0.1 % (0.0-0.5); Lymphocytes Absolute Auto 2.4 10^3/uL (1.2-3.8); Lymphocytes Percent Auto 33.2 % (20.5-60.0); Mean Corpuscular HGB Conc 34.7 g/dL (29.9-35.2); Mean Corpuscular Hemoglobin 31.1 pg (26.7-34.0); Mean Corpuscular Volume 89.8 fL (81.0-99.0); Mean Platelet Volume 8.7 fL (9.5-13.5); Monocytes Absolute Auto 0.6 10^3/uL (0.3-0.8); Monocytes Percent Auto 8.1 % (1.7-12.0); Neutrophils Absolute Auto 3.7 10^3/uL (1.4-6.5); Neutrophils Percent Auto 51.5 % (43.0-75.0); Platelet Count 234 10^3/uL (150-450); Red Blood Count 4.21 10^6/uL (4.20-5.40); Red Cell Distribution Width 12.6 % (11.0-15.0); White Blood Count 7.2 10^3/uL (4.0-11.0)
[2024-09-30 09:19] LABS: Estimated Average Glucose 108 mg/dL; Glycohemoglobin A1C 5.4 % (4.5-6.2)
[2024-09-30 09:24] LABS: Alanine Aminotransferase 34 U/L (14-59); Albumin Level 3.7 g/dL (3.4-5.0); Alkaline Phosphatase 70 U/L (46-116); Aspartate Amino Transferase 23 U/L (15-37); BUN Creatinine Ratio 14.7; Bilirubin Total 0.8 mg/dL (0.2-1.0); Calcium 9.2 mg/dL (8.5-10.1); Carbon Dioxide 30.4 mmol/L (21.0-32.0); Chloride 106 mmol/L (98-107); Chol HDL Ratio 2.8; Cholesterol 170 mg/dL (<=200); Estimated GFR (African America >60 (>=60 mL/min/1.73m^2); Estimated GFR (Non-African Ame 56 (>=60 mL/min/1.73m^2); Free T3 2.51 pg/mL (2.18-3.98); Globulin 3.6 g/dL; Glucose 99 mg/dL (74-106); HDL Cholesterol 61 mg/dL (40-60); Potassium 4.4 mmol/L (3.5-5.1); Sodium 143 mmol/L (136-145); Total Protein 7.3 g/dL (6.4-8.2); Triglycerides 52 mg/dL (<=150); VLDL CHOLESTEROL 10.4 mg/dL
== END 2024-09-30 08:14 | disposition home or self-care (01) ==
LOC: LAB 08:14
PROVIDERS: PCP Family Medicine; Visit Provider Family Medicine
DX: Z00.00 Encounter for general adult medical examination without abnormal findings (principal)
CPT/HCPCS: 36415; 80053; 80061; 83036; 83540; 84436; 84443; 84481; 85025